=== PATIENT | female | born 1945 | race Caucasian/White ===

== ENCOUNTER → 2020-01-15 12:16 | Outpatient (BNVA) | payer MEDICARE, OTHER, SELFPAY | PROVIDERS: Family Provider Family Medicine; Visit Provider Dermatology | DX: D48.9 Neoplasm of uncertain behavior, unspecified (principal) | CPT/HCPCS: 88304 ==

== ENCOUNTER 2020-06-30 12:25 | Outpatient (CLI) | payer MEDICARE, OTHER, SELFPAY ==
--- NOTE | 2020-06-30 12:50 | MM_ITS ---
WS: [id number] BILATERAL SCREENING MAMMOGRAM WITH BELINDA DISPLACEMENT VIEWS. CAD PERFORMED. HISTORY: SCREENING COMPARISON: 03/01/2019, 12/05/2017 Bilateral craniocaudal and mediolateral like views are performed. Belinda displacement views in CC and MLO projection also performed. Breasts composition: There are scattered areas of fibroglandular density. Bilateral breast implants are contracted with calcifications. Extravasation from the RIGHT breast imp lant is stable. No suspicious masses or calcifications. MM/[place] [id number] IMPRESSION: BI-RADS: 2-Benign FOLLOW-UP: 1 Year Follow-up
== END 2020-06-30 12:26 | disposition home or self-care (01) ==
LOC: RADSHAW 12:27
PROVIDERS: PCP Family Medicine; Visit Provider Family Medicine
DX: Z12.31 Encounter for screening mammogram for malignant neoplasm of breast (principal)
CPT/HCPCS: 77067

== ENCOUNTER 2020-07-03 14:28 | Outpatient (CLI) | payer MEDICARE, OTHER, SELFPAY ==
--- NOTE | 2020-07-03 14:34 | XR_ITS ---
WS: [id number] SCREENING DEXA SCAN [employer] CLINICAL INFORMATION: OSTEOPOROSIS COMPARISON: 2018 FINDINGS: The L1-L4 bone mineral density measures 1.272 g/cm2. This corresponds to a T score score of 0.8 and Z score of 2.5. Left femoral neck bone mineral density measures 0.949 g/cm2. This corresponds to a T score of -0.5 an d Z score of 1.2. Right femoral neck bone mineral density measures 1.017 g/cm2. This corresponds to a T score 0.1of and Z score of 1.7. Mean femoral neck bone mineral density measures 0.983 g/cm2. This corresponds to a T score of -0.2 an d Z score of 1.4. XR/XR DEXA axial skeleton* [id number] IMPRESSION: Normal bone mineralization. Patient's FRAX calculated 10 year probability for major osteoporotic fracture i s 10.2 % and osteoporotic hip fracture is 1.8%.
== END 2020-07-03 14:29 | disposition home or self-care (01) ==
LOC: RADWPI 14:29
PROVIDERS: PCP Family Medicine; Visit Provider Family Medicine
DX: M81.0 Age-related osteoporosis without current pathological fracture (principal)
CPT/HCPCS: 77080

== ENCOUNTER 2021-07-20 12:41 | Outpatient (CLI) | payer MEDICARE, OTHER, SELFPAY ==
--- NOTE | 2021-07-20 13:00 | MM_ITS ---
WS: [id number] BILATERAL 3D TOMOSYNTHESIS DIGITAL SCREENING MAMMOGRAPHY WITH CAD CLINICAL INFORMATION: SCREENING HISTORY: Screening mammogram. No current complaints. COMPARISON: June 30, 2020 TECHNIQUE: Bilateral CC and MLO views. FINDINGS: Densely calcified lobulated subpectoral implants unchanged from previous. Extracapsular rup ture RIGHT breast implant is stable. Scattered fibroglandular densities bilaterally. A few incidental and punctate calcifications. Lucent centered calcifications. No suspicious focal mass, asymmetry, calcifications, or architectural distor tion. No evidence of malignancy. MM/[place] [id number] IMPRESSION: BI-RADS: 2-Benign FOLLOW UP: 1 Year Follow-up Recommend return to annual screening mammography.
== END 2021-07-20 12:42 | disposition home or self-care (01) ==
LOC: RAD 12:42
PROVIDERS: PCP Family Medicine; Visit Provider Family Medicine
DX: Z12.31 Encounter for screening mammogram for malignant neoplasm of breast (principal)
CPT/HCPCS: 77063; 77067

== ENCOUNTER 2022-07-22 09:43 | Outpatient (CLI) | payer MEDICARE, OTHER, SELFPAY ==
--- NOTE | 2022-07-22 09:54 | MM_ITS ---
WS: [id number] Bilateral screening 3D tomosynthesis digital mammogram, 07/22/2022 Clinical Data: SCREENING Comparison: 07/20/2021, 06/30/2020, 03/01/2019, 12/05/2017, 12/02/2016, 07/24/2015, 09/25/2012, 01/14/2011, , 09/11/2008, 08/09/2007. Findings: The breast parenchymal pattern shows fibroglandular tissue. Patient is had bilateral augmentation end oplastic implants. There is extracapsular rupture on the right unchanged. No spiculated masses or clu stered calcifications are seen. There are no secondary signs of carcinoma. MM/[place] [id number] Impression: 1. Negative bilateral mammograms with augmentation mammoplasty implants and ex tracapsular rupture of the right implant unchanged. 2. Recommend annual screening mammograms. BIRADS: 2-Benign FOLLOW UP: 1 Year Follow-up The CAD typing checker was used.
== END 2022-07-22 09:44 | disposition home or self-care (01) ==
LOC: RAD 09:48
PROVIDERS: PCP Family Medicine; Visit Provider Family Medicine
DX: Z12.31 Encounter for screening mammogram for malignant neoplasm of breast (principal)
CPT/HCPCS: 77063; 77067

== ENCOUNTER → 2022-08-27 10:24 | Outpatient (BNVA) | payer MEDICARE, OTHER, SELFPAY | PROVIDERS: PCP Family Medicine; Visit Provider Nurse Practitioner Family | DX: L57.0 Actinic keratosis (principal); L81.4 Other melanin hyperpigmentation; D22.5 Melanocytic nevi of trunk; Z71.89 Other specified counseling; L85.3 Xerosis cutis; L57.8 Other skin changes due to chronic exposure to nonionizing radiation; Z85.828 Personal history of other malignant neoplasm of skin | CPT/HCPCS: 17000; 17003; 99213 ==

== ENCOUNTER → 2023-03-01 09:20 | Outpatient (BNVA) | payer MEDICARE, OTHER, SELFPAY | PROVIDERS: PCP Family Medicine; Visit Provider Nurse Practitioner Family | DX: L57.0 Actinic keratosis (principal); L82.0 Inflamed seborrheic keratosis; Z85.828 Personal history of other malignant neoplasm of skin; D22.5 Melanocytic nevi of trunk; L81.4 Other melanin hyperpigmentation; L85.3 Xerosis cutis; L57.8 Other skin changes due to chronic exposure to nonionizing radiation | CPT/HCPCS: 17000; 17110; 99213 ==

== ENCOUNTER → 2023-05-17 11:11 | Outpatient (BNVA) | payer MEDICARE, OTHER, SELFPAY | PROVIDERS: PCP Family Medicine; Visit Provider Nurse Practitioner Family | DX: L82.1 Other seborrheic keratosis (principal); L82.0 Inflamed seborrheic keratosis; L57.0 Actinic keratosis; L57.8 Other skin changes due to chronic exposure to nonionizing radiation | CPT/HCPCS: 17000; 17110; 99213 ==

== ENCOUNTER 2023-07-27 10:14 | Outpatient (CLI) | payer MEDICARE, OTHER, SELFPAY ==
--- NOTE | 2023-07-27 10:56 | MM_ITS ---
WS: [id number] BILATERAL SCREENING DIGITAL BREAST MAMMOGRAPHY WITH BELINDA DISPLACEMENT VIEWS. CAD PERFORMED. HISTORY: SCREENING COMPARISON: 07/22/2022, 07/20/2021 Bilateral craniocaudal and mediolateral oblique views are performed with tomosynthesis and SM. Belinda displacement views in CC and MLO projection also performed. Breasts composition: There are scattered areas of fibroglandular density. Dense calcification surrounding the implants. Extracapsular rupture of the RIGHT implant is unchanged as seen on multiple prior studies. There are no masses. Benign calcifications LEFT breast. MM/[place] [id number] IMPRESSION: BI-RADS: 2-Benign FOLLOW-UP: 1 Year Follow-up
== END 2023-07-27 10:15 | disposition home or self-care (01) ==
LOC: RAD 10:14
PROVIDERS: PCP Family Medicine; Visit Provider Family Medicine
DX: Z12.31 Encounter for screening mammogram for malignant neoplasm of breast (principal)
CPT/HCPCS: 77063; 77067

== ENCOUNTER 2023-10-10 11:25 | Outpatient (CLI) | payer MEDICARE, OTHER, SELFPAY ==
--- NOTE | 2023-10-10 11:32 | MR_ITS ---
WS: [id number] MRI RIGHT SHOULDER NONCONTRAST TECHNIQUE: Sagittal T2, coronal T1, T2 and proton density imaging. Axial gradient PDE imaging. CLINICAL INFORMATION: IMPINGEMENT SYNDROME OF R SHOULDER COMPARISON: None. FINDINGS: Moderate degenerative arthritis AC joint with mild downsloping acromion. Subacromial spurring. Imping ement on the distal supraspinatus. Fluid in the AC joint. Small amount of subacromial subdeltoid flui d. Slight impingement on the distal supraspinatus. Mild chronic thinning of the supraspinatus. Chronic thinning of the infraspinatus which appears intact. Normal teres minor. Subscapularis tendon appears intact. Biceps tendon intact within the bicipital groove. Degenerative fraying of the glenoid labrum. Moderate degenerative arthritis glenohumeral articulation. Tendinopathy intra-articular bic eps tendon. MR/MR shoulder RT wo con* [id number] IMPRESSION: 1. Moderate degenerative arthritis AC joint with fluid and edema. 2. Slight impingement on the distal supraspinatus with slight subacromial spur ring. 3. Mild chronic thinning of the supraspinatus distally which appears intact. A ssociated tendinopathy. 4. Rotator cuff is otherwise intact. 5. Biceps tendon appears intact within the bicipital groove. 6. Tendinopathy intra-articular biceps tendon. 7. Moderate degenerative narrowing of the glenohumeral articulation.
== END 2023-10-10 11:26 | disposition home or self-care (01) ==
LOC: RAD 11:26
PROVIDERS: PCP Family Medicine; Visit Provider Orthopaedic Surgery
DX: M75.41 Impingement syndrome of right shoulder (principal); M13.811 Other specified arthritis, right shoulder; M62.89 Other specified disorders of muscle
CPT/HCPCS: 73221

== ENCOUNTER → 2023-11-09 14:02 | Outpatient (BNVA) | payer MEDICARE, OTHER, SELFPAY | PROVIDERS: PCP Family Medicine; Visit Provider Dermatology | DX: L72.0 Epidermal cyst (principal); L82.0 Inflamed seborrheic keratosis; S20.462A Insect bite (nonvenomous) of left back wall of thorax, initial encounter; X58.XXXA Exposure to other specified factors, initial encounter; D18.01 Hemangioma of skin and subcutaneous tissue; L81.4 Other melanin hyperpigmentation; Z85.828 Personal history of other malignant neoplasm of skin | CPT/HCPCS: 17110; 99213 ==

== ENCOUNTER → 2024-03-02 10:41 | Outpatient (BNVA) | payer MEDICARE, SELFPAY | PROVIDERS: Visit Provider Physician Assistant | DX: M25.551 Pain in right hip (principal); M16.11 Unilateral primary osteoarthritis, right hip | CPT/HCPCS: 73502; 99203 ==

== ENCOUNTER 2024-03-06 07:23 | Emergency (ER) | payer MEDICARE, OTHER, SELFPAY ==
[2024-03-06 07:34] VITALS: BP 170/63; PULSE 72; RESP 16; TEMP 37; O2SAT 98; BMI 23.9
[2024-03-06 07:38] VITALS: BP 170/63; PULSE 72; RESP 16; TEMP 37; O2SAT 98
--- NOTE | 2024-03-06 07:42 | ED_ITS ---
HPI - Extremity Problem General: Chief complaint: Extremity Problem,Nontraumatic Stated complaint: extreme pain in hip groin Time Seen by Provider: 03/06/24 07:35 History of Present Illness: 78-year-old female presents emergency ro om complaining of right groin pain and pain. She is seen orthopedics she has had steroid shot she has been given muscle relaxers and narcotic pain medications. Patient cannot recall any specific trauma she describes pain that radiates out of her buttock down the anterior thigh she states she has weakness in her leg feels like it is going to give way at times. No difficulty with bowel or bladder. Cortisone shot in the greater trochanter did not seem to help. Associated symptoms: Deny chest pain, fever(s) or rash Related Data Home Medications Medication Instructions Recorded Confirmed hydralazine 25 mg tablet 25 mg PO DAILY 01/15/20 03/06/24 hydrochlorothiazide 25 mg tablet 25 mg PO DAILY 01/15/20 03/06/24 lisinopril 40 mg tablet 40 mg PO DAILY 01/15/20 03/06/24 rosuvastatin 5 mg tablet (Crestor) 5 mg PO .Mon, Wed, Tue01/15/20 03/06/24 fluoxetine 10 mg capsule 10 mg PO DAILY 04/15/21 03/06/24 Previous Rx's Medication Instructions Recorded mupirocin 2 % topical ointment 1 applic topical DAILY #22 grams 05/28/21 meloxicam 15 mg tablet 15 mg PO DAILY #30 tabs 03/02/24 hydrocodone 5 mg-acetaminophen 325 1 tab PO Q6H PRN pain #15 tabs 03/06/24 mg tablet prednisone 20 mg tablet 20 mg PO TID #15 tabs 03/06/24 pregabalin 75 mg capsule (Lyrica) 75 mg PO BID #60 caps 03/06/24 tizanidine 4 mg tablet 4 mg PO Q6H PRN muscle spasticity 03/06/24 #20 tabs Allergies Allergy/AdvReac Type Severity Reaction Status Date / Time aspirin Allergy hives, Verified 03/02/24 10:42 can't breath, throat swells penicillin G Allergy a long Verified 03/02/24 10:42 time ago Review of Systems Const: Denies: fever(s) or chills Card: Denies: chest pain Resp: Denies: dyspnea GI: Denies: abdominal pain : Denies: dysuria, urinary frequency or urinary urgency Musc: Reports: extremity pain; Denies: neck pain or back pain Skin/Breast: Denies: rash PFSH ED PFSH: Medical History HTN (hypertension) Hyperlipemia History of nonmelanoma skin cancer Surgical History History of D&C History of repair of rotator cuff Family History Mother Cancer Other COPD (chronic obstructive pulmonary disease) Social History Smoking and tobacco/nicotine status: unknown if used tobacco/nicotine Alcohol intake: current Alcohol intake frequency: 0-2 Drinks per Day Alcohol type: wine Physical Exam Const: GENERAL APPEARANCE: cooperative ORIENTATION/CONSCIOUSNESS: Yes awake, Yes oriented to person, Yes oriented to place and Yes oriented to time HENMT: COMMON NORMALS: normocephalic, atraumatic and hearing grossly normal bilaterally HEAD & SCALP: normocephalic and atraumatic Resp: COMMON NORMALS: normal respiratory effort, No retractions, No use of accessory muscles and clear to auscultation bilaterally AUSCULTATION: clear to auscultation bilaterally Cardio: COMMON NORMALS: regular rate, regular rhythm and No murmurs present (Cardio) RATE: regular rate RHYTHM: regular rhythm GI: COMMON NORMALS: Soft to palpation and No hepatosplenomegaly present AUSCULTATION: Yes normoactive bowel sounds PALPATION: Yes Soft to palpation, No Tenderness to palpation present (GI), No Guarding due to palpation present (GI) and Yes No hepatosplenomegaly present Extremity: COMMON NORMALS: normal to inspection, capillary refill normal, no clubbing, cyanosis or edema, no calf tenderness and no pedal edema OTHER: Dorsalis pedis and posterior tibialis pulse normal capillary refill into the right foot is normal. Deep tendon reflexes difficult to elicit on the right patellar tendon +2/4 on the left. Dorsi and plantarflexion on the right is weak with dorsiflexion of the great toe on the right foot significantly weakened compared to the left. Sensation to the lower extremities bilaterally is normal. Straight leg raising equivocal. Neuro: SENSORIUM/ORIENTATION: Yes oriented to person, Yes oriented to place and Yes oriented to time Skin: COMMON NORMALS: no rashes or lesions noted GENERAL SKIN EXAM: no rashes or lesions noted Course Vital Signs: Vital signs: Vital Signs Temperature 98.6 F 03/06/24 07:38 Pulse Rate 72 03/06/24 07:38 Respiratory Rate 16 03/06/24 07:38 Blood Pressure 170/63 03/06/24 07:38 Pulse Oximetry 98 03/06/24 07:38 Oxygen Delivery Me thod Room Air 03/06/24 07:38 MDM - Extremity (Nontraumatic) Medical Decision Making CT of the lumbar spine shows lumbar disc with central canal stenosis at L4-5 5 S1. This is consistent with her exam. Suspect that her symptoms are more lumbar radiculopathy could move her hip through a fairly aggressive range of motion without causing significant amount of pain she has minimal discomfort with palpation over the greater trochanter. This could be because she previously had a steroid injection there however despite the steroid injection she still has considerable amount of symptoms. Reviewed findings with her and explained suspicions. Recommend that she follow-up with Dr. Sykes she would likely will benefit from further evaluation and possible advanced imaging of the lumbar spine Medical Records I reviewed the patient's medical records. Lab Data Radiology Impressions Lumbar Spine CT 03/06/24 07:53 Impression: 1. Moderate osteoarthritis at all lumbar levels. 2. Facet joint arthritis at all levels. 3. Degenerative disc narrowing at L3-L4. 4. Multilevel disc bulging with canal stenosis at L4-L5 and L5-S1. All radiology interpretation(s) finalized by discharge Discharge Plan Discharge Patient Disposition: Home Clinical Impression: Lumbar radiculopathy, right Condition: Stable Prescriptions: New tizanidine 4 mg tablet 4 mg PO Q6H PRN (Reason: muscle spasticity) Qty: 20 0RF Rx Instructions: do not exceed 3 doses per 24 hrs hydrocodone-acetaminophen 5-325 mg tablet 1 tab PO Q6H PRN (Reason: pain) Qty: 15 0RF prednisone 20 mg tablet 20 mg PO TID Qty: 15 0RF Rx Instructions: 1 p.o. 3 times daily x3 days, 1 p.o. twice daily x2 days, 1 p.o. daily x2 days pregabalin [Lyrica] 75 mg capsule 75 mg PO BID Qty: 60 0RF No Action fluoxetine 10 mg capsule 10 mg PO DAILY mupirocin 2 % ointment 1 applic topical DAILY Qty: 22 1RF Rx Instructions: Apply to affected area until healed lisinopril 40 mg tablet 40 mg PO DAILY rosuvastatin [Crestor] 5 mg tablet 5 mg PO .Mon, Wed, Fri hydralazine 25 mg tablet 25 mg PO DAILY hydrochlorothiazide 25 mg tablet 25 mg PO DAILY meloxicam 15 mg tablet 15 mg PO DAILY Qty: 30 1RF Discharge Orders: Discharge ED (Routine); Ordered 03/06/24 Ordered By: Bertin Monge Discharge Diet: Usual diet Discharge Activity: Increase activity as tolerated Patient Instructions: Opioid Safety, Pain Management Activity Restrictions/Additional Instructions: Thank you for choosing [facility] for your healthcare needs today. It is very important that you follow up as instructed or that you return to the Emergency Department should you have concerns or if your condition changes or worsens in any way. You were seen in the emergency room with complaint of right hip and leg pain. Based on your exam and your reported history suspect that this is due to a nerve root compression or irritation where it leaves the spinal cord column. CT does show this however you likely will need more detailed imaging from an MRI. Will set you up to see Dr. Sykes as an outpatient. You can use the pain medications prescribed today to control your symptoms in the interim. Coding Level of Care Code ED Home [facility] [employer] for Leticia Mehta
--- NOTE | 2024-03-06 07:53 | CT_ITS ---
WS: [id number] CT of the lumbar spine, additional two-dimensional coronal and sagittal imaging was obtained. 024 Clinical Data: R leg radiculopathy Comparison: None. DLP: 506.[address] scans at [facility] use at least one of these dose optimization techniques: automated e xposure control; mA and/or kV adjustment per patient size (includes targeted exams where dose is matc hed to clinical indication); or iterative reconstruction. Findings: There is anterior osteoarthritic spurring of all the lumbar vertebral bodies. There is dege nerative disc narrowing at L3-L4. No compression fractures or subluxation is seen. There is facet lambert nt arthritis at all levels. T12-L1: No canal stenosis, disc bulge or foraminal narrowing is seen. L1-L2: No canal stenosis, disc bulge or foraminal narrowing is seen. L2-L3: There is minimal disc bulging but no canal stenosis. L3-L4: There is minimal disc bulging but no significant canal stenosis. L4-L5: There is moderate disc bulging with canal stenosis. L5-S1: There is moderate disc bulging with canal stenosis. CT/CT lumbar spine wo con* [id number] Impression: 1. Moderate osteoarthritis at all lumbar levels. 2. Facet joint arthritis at all levels. 3. Degenerative disc narrowing at L3-L4. 4. Multilevel disc bulging with canal stenosis at L4-L5 and L5-S1.
[2024-03-06] MEDS: ketorolac 30 mg/mL INJ IVP (08:29)
[2024-03-06] MEDS: orphenadrine 30 mg/mL Inj 2 mL 60 MG IM (08:29)
[2024-03-06] MEDS: morphine 4 mg/mL SDV 1 mL IVP (08:33)
--- NOTE | 2024-03-06 09:41 | DCPLANNER ---
Message sent to Ortho/ for follow up-
[2024-03-06 10:23] VITALS: BP 141/90; PULSE 68; O2SAT 99
== END 2024-03-06 10:28 | disposition home or self-care (01) ==
PROVIDERS: Emergency Provider Family Medicine
DX: M54.16 Radiculopathy, lumbar region (principal); I10 Essential (primary) hypertension; E78.5 Hyperlipidemia, unspecified
CPT/HCPCS: 72131; 96372; 96374; 96375; 99285; J1885; J2270; J2360

== ENCOUNTER 2024-03-19 08:29 | Outpatient (CLI) | payer MEDICARE, OTHER, SELFPAY ==
--- NOTE | 2024-03-19 08:32 | MR_ITS ---
WS: [id number] MRI LUMBAR SPINE NONCONTRAST HISTORY: STENOISIS OF SPINAL CANAL DUE TO intervertebral disc disease. COMPARISON: CT lumbar spine 03/06/2024 TECHNIQUE: Sagittal and axial multisequence imaging is submitted. Mild LEFT curvature lumbar spine. Disc spaces are mildly narrowed and desiccated. L4 anterolisthesis by 2 mm. No fractures. No significant marrow edema. Conus terminates normally at L1. L1-L2: Normal. L2-L3: Moderate annular disc bulging with ligamentum flavum and facet arthritis. Disc encroachment up on the subarticular recesses. Additional bilateral foraminal disc protrusions, LEFT greater than RIGH T. Mild central with moderate bilateral subarticular recess encroachment. There is disc encroachment upon the traversing L3 nerve roots. Mild bilateral foraminal stenosis. L3-L4: Diffuse annular disc bulging encroaching upon the ventral thecal sac. Moderate ligamentum flav um and facet arthritis. Disc narrowing the subarticular recesses, RIGHT greater then LEFT. Disc encro achment upon the traversing L4 nerve roots. Osteophytic ridging. Disc osteophyte complexes in the for gold. Mild to moderate central, bilateral subarticular recess and foraminal stenosis. L4-L5: Diffuse annular disc bulging with ligamentum flavum and facet arthritis. Disc encroachment upo n the subarticular recesses and traversing L5 nerve roots. Mild central, bilateral subarticular reces s and foraminal stenosis. L5-S1: LEFT foraminal shallow disc protrusion with annular fissure. Very minimal contact on the trave rsing S1 nerve roots, LEFT greater than RIGHT. RIGHT renal cysts, largest 2.2 cm. MR/MR lumbar spine wo con* [id number] IMPRESSION: 1. Multilevel degenerative disc disease with disc and osteophyte and facet art hritis resulting in stenoses. 2. L2-3: Mild central with moderate bilateral subarticular recess encroachment . Encroachment upon the L3 traversing nerve roots. Mild foraminal stenosis. 3. L3-4: Mild to moderate central, bilateral subarticular recess and foraminal stenosis. Disc encroachment upon the traversing L4 nerve roots, RIGHT greater than LEFT. 4. L4-5: Mild central, bilateral subarticular recess and foraminal stenosis. 5. Minimal disc contacting the traversing S1 nerve roots. Shallow LEFT foramin al disc protrusion at L5-S1.
== END 2024-03-19 08:30 | disposition home or self-care (01) ==
LOC: RAD 08:30
PROVIDERS: Absent Provider Orthopaedic Surgery; PCP Family Medicine; Visit Provider Family Medicine
DX: M99.59 Intervertebral disc stenosis of neural canal of abdomen and other regions (principal); M48.061 Spinal stenosis, lumbar region without neurogenic claudication; M51.369 Other intervertebral disc degeneration, lumbar region without mention of lumbar back pain or lower extremity pain; R93.89 Abnormal findings on diagnostic imaging of other specified body structures; M51.27 Other intervertebral disc displacement, lumbosacral region; M47.816 Spondylosis without myelopathy or radiculopathy, lumbar region; M25.78 Osteophyte, vertebrae; N28.1 Cyst of kidney, acquired; M43.8X6 Other specified deforming dorsopathies, lumbar region
CPT/HCPCS: 72148

== ENCOUNTER → 2024-03-29 13:43 | Outpatient (BNVA) | payer MEDICARE, OTHER, SELFPAY | PROVIDERS: PCP Family Medicine; Visit Provider Orthopaedic Surgery | DX: M54.9 Dorsalgia, unspecified (principal) | CPT/HCPCS: 72110; 99204 ==

== ENCOUNTER → 2024-04-05 10:35 | Outpatient (BNVA) | payer MEDICARE, OTHER, SELFPAY | PROVIDERS: PCP Family Medicine; Visit Provider Nurse Practitioner Family | DX: L72.0 Epidermal cyst (principal); D18.01 Hemangioma of skin and subcutaneous tissue; L81.4 Other melanin hyperpigmentation; Z08 Encounter for follow-up examination after completed treatment for malignant neoplasm; Z85.828 Personal history of other malignant neoplasm of skin; D48.5 Neoplasm of uncertain behavior of skin | CPT/HCPCS: 11102; 99213 ==

== ENCOUNTER → 2024-04-20 08:27 | Outpatient (BNVA) | payer MEDICARE, OTHER, SELFPAY | PROVIDERS: PCP Family Medicine; Visit Provider Student in an Organized Health Care Education/Training Program | DX: M16.11 Unilateral primary osteoarthritis, right hip (principal) | CPT/HCPCS: 20610; 77002; J3301 ==

== ENCOUNTER → 2024-05-03 12:52 | Outpatient (BNVA) | payer MEDICARE, OTHER, SELFPAY | PROVIDERS: PCP Family Medicine; Visit Provider Dermatology | DX: D04.9 Carcinoma in situ of skin, unspecified (principal); L82.1 Other seborrheic keratosis; L72.0 Epidermal cyst; Z08 Encounter for follow-up examination after completed treatment for malignant neoplasm; Z85.828 Personal history of other malignant neoplasm of skin; L57.0 Actinic keratosis | CPT/HCPCS: 17000; 99213 ==

== ENCOUNTER → 2024-05-17 15:09 | Outpatient (BNVA) | payer MEDICARE, OTHER, SELFPAY | PROVIDERS: PCP Family Medicine; Visit Provider Orthopaedic Surgery | DX: M54.50 Low back pain, unspecified (principal) | CPT/HCPCS: 72110; 99214 ==

== ENCOUNTER 2024-07-27 10:21 | Outpatient (CLI) | payer MEDICARE, OTHER, SELFPAY ==
--- NOTE | 2024-07-27 10:25 | MM_ITS ---
WS: [id number] BILATERAL 3D TOMOSYNTHESIS DIGITAL SCREENING MAMMOGRAPHY WITH CAD CLINICAL INFORMATION: SCREENING HISTORY: Screening mammogram. No current complaints. COMPARISON: 2022 TECHNIQUE: Bilateral CC and MLO views. FINDINGS: Stable extracapsular rupture RIGHT implant is unchanged over multiple prior studies. Scattered fibroglandular densities bilaterally. No suspicious focal mass, asymmetry, calcifications, or architectural distortion. No evidence of malignancy. Incidental punctate and lucent centered calcifications. Vascular calcifications. Capsular calcifications. MM/MM [facility] tomosynthesis [id number] IMPRESSION: DENSITY: There are scattered areas of fibroglandular density. BI-RADS: 2 - Benign. FOLLOW UP: 1 Year Follow-up Recommend return to annual screening mammography.
== END 2024-07-27 10:22 | disposition home or self-care (01) ==
PROVIDERS: PCP Family Medicine; Visit Provider Family Medicine
DX: Z12.31 Encounter for screening mammogram for malignant neoplasm of breast (principal); R92.323 Mammographic fibroglandular density, bilateral breasts; R92.1 Mammographic calcification found on diagnostic imaging of breast
CPT/HCPCS: 77063; 77067

== ENCOUNTER → 2024-08-07 13:50 | Outpatient (BNVA) | payer MEDICARE, OTHER, SELFPAY | PROVIDERS: PCP Family Medicine; Visit Provider Dermatology | DX: D04.9 Carcinoma in situ of skin, unspecified (principal); L82.1 Other seborrheic keratosis; L72.0 Epidermal cyst; L73.8 Other specified follicular disorders; Z08 Encounter for follow-up examination after completed treatment for malignant neoplasm; Z85.828 Personal history of other malignant neoplasm of skin; L82.0 Inflamed seborrheic keratosis; L29.89 Other pruritus; L53.8 Other specified erythematous conditions; L57.0 Actinic keratosis | CPT/HCPCS: 17000; 17110; 99213 ==

== ENCOUNTER 2024-10-22 14:35 | Outpatient (CLI) | payer MEDICARE, OTHER, SELFPAY | END 2024-10-22 14:36 | disposition home or self-care (01) | LOC: LAB 14:38 | PROVIDERS: PCP Family Medicine; Visit Provider Nurse Practitioner Family | DX: R21 Rash and other nonspecific skin eruption (principal) | CPT/HCPCS: 36415; 86003; 86008 ==

== ENCOUNTER 2024-10-22 22:48 | Inpatient (IN) | payer MEDICARE, OTHER, SELFPAY ==
[2024-10-22 22:49] VITALS: BP 106/59; PULSE 79; RESP 15; TEMP 36.4; O2SAT 96; BMI 23.5
--- OUTSIDE RECORDS SUMMARY | 2024-10-22 22:56 | XMS_ITS | Patient Health Record ---
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 Name Role Phone Nancy Serrano Primary Care Provider Darvin Whitley Allergies Allergen (clinical drug ingredient) Drug/Non Drug Allergy documented on EMR Reaction Allergy Type Onset Date Status aspirin Aspirin , Drug Allergy Active Reason For Referral No Information Medications Medication SIG (Take, Route, Frequency, Duration) Notes Start Date End Date Status Lisinopril 40 MG Oral Tablet Lisinopril 40 MG Oral Tablet 6 03/21/18 Active Simvastatin 40 MG Oral Tablet Simvastatin 40 MG Oral Tablet 6 03/21/18 Active Hydrochlorothiazide 25 MG Oral Tablet Hydrochlorothiazide 25 MG Oral Tablet 6 03/21/18 Active Hydralazine Hydrochloride 25 MG Oral Tablet Hydralazine Hydrochloride 25 MG Oral Tablet 6 03/21/18 Active Social History Social History Additional Details Category Social Info Options Details zzMigrated Social History Migrated Social History Smoking Status:Never smoked tobacco (finding) Plan Of Treatment No Information
--- NOTE | 2024-10-22 23:02 | W.ED.ALLEREA ---
HPI - Allergic Reaction General: Chief complaint: Allergic Reaction Stated complaint: allergic rxn Time Seen by Provider: 10/22/24 22:53 History of Present Illness: HPI narrative: Patient comes in with chest pain and an allergic reaction. States for the past few days she has had hives on her arms and legs. States that today they got a little worse after being started on 20 mg of prednisone a day and famotidine daily as well as Benadryl. States that she called the ambulance tonight because she developed chest pain which she describes as sharp midsternal, off-and-on. And route she was given 0.5 mg of IM epinephrine. After the epinephrine her symptoms completely resolved. She is asymptomatic here. Her hives are gone. Will increase her dose of prednisone, check labs, EKG, and reassess. Related Data Home Medications ?Medication ?Instructions ?Recorded ?Confirmed hydralazine 25 mg tablet 25 mg PO DAILY 01/15/20 10/21/24 hydrochlorothiazide 25 mg tablet 25 mg PO DAILY 01/15/20 10/21/24 lisinopril 40 mg tablet 40 mg PO DAILY 01/15/20 10/21/24 fluoxetine 10 mg capsule 10 mg PO DAILY 04/15/21 10/21/24 cholecalciferol (vitamin D3) 1,250 PO 10/21/24 10/21/24 mcg (50,000 unit) capsule rimantadine 100 mg tablet 100 mg PO DAILY 10/21/24 10/21/24 (Flumadine) Previous Rx's ?Medication ?Instructions ?Recorded famotidine 40 mg tablet (Pepcid) 40 mg PO BID #10 tabs 10/21/24 prednisone 20 mg tablet 20 mg PO DAILY 5 days #15 tabs 10/21/24 Allergies Allergy/AdvReac Type Severity Reaction Status Date / Time aspirin Allergy hives, Verified 04/20/24 07:15 can't breath, throat swells penicillin G Allergy a long Verified 04/20/24 07:15 time ago Review of Systems Card: Reports: chest pain Skin/Breast: Reports: other (Hives) [facility] PFS: Medical History (Updated 10/23/24 @ 00:08 by Camilo Khalil MD) HTN (hypertension) Hyperlipemia History of nonmelanoma skin cancer Surgical History History of D&C History of repair of rotator cuff Family History Mother Cancer Other COPD (chronic obstructive pulmonary disease) Social History Smoking and tobacco/nicotine status: never used tobacco/nicotine Alcohol intake: current Alcohol intake frequency: 0-2 Drinks per Day Alcohol type: wine Marital status: Physical Exam Const: COMMON NORMALS: no acute distress, patient oriented x3, healthy appearing and alert HENMT: COMMON NORMALS: normocephalic and atraumatic HEAD & SCALP: normocephalic and atraumatic Eye: COMMON NORMALS: EOMs intact bilaterally Chest: OTHER: Regular rate and rhythm Resp: COMMON NORMALS: normal respiratory effort, No retractions and No use of accessory muscles GI: COMMON NORMALS: Normal to inspection, nondistended, normoactive bowel sounds present, Soft to palpation and non-tender PALPATION: Yes Soft to palpation Extremity: COMMON NORMALS: normal to inspection and full ROM Neuro: COMMON NORMALS: patient oriented x3 SENSORIUM/ORIENTATION: Yes alert Psych: COMMON NORMALS: mental status grossly normal and cooperative Skin: COMMON NORMALS: no rashes or lesions noted and no wounds GENERAL SKIN EXAM: no rashes or lesions noted Course Vital Signs: Vital signs: Vital Signs Temperature 97.6 F 10/22/24 22:49 Pulse Rate 79 10/22/24 22:49 Respiratory Rate 15 10/22/24 22:49 Blood Pressure 106/59 10/22/24 22:49 Pulse Oximetry 96 10/22/24 22:49 Oxygen Delivery Me thod Room Air 10/22/24 22:49 MDM - Allergic Reaction Medical Decision Making On reassessment I talked to the patient about her test results. Her troponin came back initially at 51. Her potassium is low as well at 2.6. Will begin replenishment of potassium both p.o. and IV. I discussed the case with the hospitalist and we will admit for observation/cardiac rule out as well as to make sure her allergic reaction does not recur after the epinephrine wears off. Lab Data 10/22/24 23:15 10/22/24 23:15 Laboratory Results WBC 15.29 10^3/uL (3.29-11.43) H 10/22/24 23:15 RBC 4.27 10^6/uL (3.85-5.65) 10/22/24 23:15 Hgb 13.10 g/dL (11.27-16.99) 10/22/24 23:15 Hct 39.2 % (36-47) 10/22/24 23:15 MCV 91.8 fl (85-98) 10/22/24 23:15 MCH 30.7 pg (27-33) 10/22/24 23:15 MCHC 33.4 g/dL (30-55) 10/22/24 23:15 RDW 11.9 % (12.1-15.1) L 10/22/24 23:15 Plt Count 287 10^3/cmm (157-399) 10/22/24 23:15 MPV 10.6 fL (7.4-10.4) H 10/22/24 23:15 Neut % (Auto) 68.9 % 10/22/24 23:15 Lymph % (Auto) 25.4 % 10/22/24 23:15 [place] % (Auto) 5.2 % 10/22/24 23:15 Eos % (Auto) 0.1 % 10/22/24 23:15 Baso % (Auto) 0.1 % 10/22/24 23:15 Neut # (Auto) 10.53 10^3/uL (1.8-7.7) H 10/22/24 23:15 Lymph # (Auto) 3.9 10^3/uL (0.8-4.8) 10/22/24 23:15 [place] # (Auto) 0.8 10^3/uL (0.2-0.9) 10/22/24 23:15 Eos # (Auto) 0.0 10^3/uL (0.0-0.8) 10/22/24 23:15 Baso # (Auto) 0.0 10^3/uL (0.0-0.1) 10/22/24 23:15 Nucleated RBC % (auto) 0 % 10/22/24 23:15 Nucleated RBCs # 0.0 /100WBC 10/22/24 23:15 Sodium 133 mmol/L (136-145) L 10/22/24 23:15 Potassium 2.6 mmol/L (3.5-5.1) L* 10/22/24 23:15 Chloride 98 mmol/L (98-107) 10/22/24 23:15 Carbon Dioxide 21 mmol/L (22-29) L 10/22/24 23:15 Anion Gap 16.6 (5-19) 10/22/24 23:15 BUN 11 mg/dL (8-23) 10/22/24 23:15 Creatinine 0.5 mg/dL (0.5-0.9) 10/22/24 23:15 GFR Calculation Not Reportable 10/22/24 23:15 Glucose 159 mg/dL (65-115) H 10/22/24 23:15 Calculated Osmolality 279 mOsm/kg (285-295) L 10/22/24 23:15 Calcium 7.7 mg/dL (8.5-10.5) L 10/22/24 23:15 Troponin T Baseline 51 ng/L (0-10) H 10/22/24 23:15 No radiology studies performed this visit Discharge Plan Discharge Patient Disposition: Placed in Observation Clinical Impression: Elevated troponin, Acute hypokalemia, Allergic reaction Coding Level of Care Code ED Supervisor Special Services for Leticia Mehta
--- NOTE | 2024-10-22 23:08 | ECG_ITS ---
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 Measurements Intervals [place] Rate: 69 P: 89 NV: 181 QRS: 73 QRSD: 90 T: 76 QT: 429 QTc: 463 Interpretive Statements SINUS RHYTHM WITH OCCASIONAL VENTRICULAR PREMATURE COMPLEXES SEPTAL MYOCARDIAL INFARCTION , OF INDETERMINATE AGE [40+ ms Q WAVE IN V1/V2] Compared to ECG 10/23/2018 12:05:04 Ventricular premature complex(es) now present Myocardial infarct finding now present Electronically Signed On 10-23-2024 23:03:18 CDT by Wendy Fernandez M.D. [id number]
[2024-10-22 23:28] VITALS: BP 117/71; PULSE 65; RESP 16; O2SAT 97
[2024-10-22 23:34] LABS: Hematocrit 39.2 % (36-47); Hemoglobin 13.10 g/dL (11.27-16.99); Mean Corpuscular HGB Conc 33.4 g/dL (30-55); Mean Corpuscular Hemoglobin 30.7 pg (27-33); Mean Corpuscular Volume 91.8 fl (85-98); Nucleated Red Blood Cells % 0 %; Platelet Count 287 10^3/cmm (157-399); Red Blood Count 4.27 10^6/uL (3.85-5.65); White Blood Count 15.29 10^3/uL (3.29-11.43)
[2024-10-22 23:49] LABS: Troponin(5th) Baseline 51 ng/L (0-10)
[2024-10-22 23:50] LABS: Blood Urea Nitrogen 11 mg/dL (8-23); Calcium 7.7 mg/dL (8.5-10.5); Carbon Dioxide 21 mmol/L (22-29); Chloride 98 mmol/L (98-107); Creatinine Clr Calc Pharmacy 59.6633; Glucose 159 mg/dL (65-115); Osmolality Calculated 279 mOsm/kg (285-295); Sodium 133 mmol/L (136-145)
[2024-10-22 23:52] LABS: Anion Gap 16.6 (5-19)
[2024-10-22 23:53] LABS: Potassium 2.6 mmol/L (3.5-5.1)
[2024-10-23] VITALS (210 sets, daily range): BP systolic 75–141; BP diastolic 44–92; PULSE 55–93; RESP 4–34; TEMP 36.6–37.1; O2SAT 59–100; BMI 23.6
[2024-10-23] MEDS: potassium chloride premix 100 ML 50 MEQ IV (00:32)
[2024-10-23] MEDS: potassium chloride oral liq 20 mEq/15 mL UDC 40 MEQ PO (00:32)
--- NOTE | 2024-10-23 00:46 | USCV_ITS ---
Darlin Riley Age: 79 Gender: F : 1945 Exam Date: 10/23/2024 01:10 Ordering Phys: Melo Vieyra MD Technologist: NAYAN Exam Location: [facility] [place] Indication: sob, chest pain, hives BP: 129 / 71 HR: 67 Rhythm: Sinus Technical Quality: Technically difficult study c/o breast implants MEASUREMENTS (Male / Female) Normal Values 2D ECHO LV Diastolic Diameter PLAX 4.2 cm 4.2 - 5.9 / 3.9 - 5.3 cm IVS Diastolic Thickness 1.2 cm 0.6 - 1.0 / 0.6 - 0.9 cm IVS Systolic Thickness 1.7 cm LVPW Diastolic Thickness 1.1 cm 0.6 - 1.0 / 0.6 - 0.9 cm LVPW Systolic Thickness 1.4 cm LVOT Diameter 1.7 cm LV Ejection Fraction 2D Teich 69.0 % LV Ejection Fraction MOD 4C 46.3 % LV Ejection Fraction MOD 2C 61.9 % LV Ejection Fraction 2C AL 62.2 % LA Diameter 2.8 cm Aorta at Sinotubular Diameter 2.5 cm IVC Diameter 1.6 cm M-MODE LA Ao Ratio MM 1.6 AV Cusp Separation MM 1.6 cm DOPPLER AV Peak Velocity 95.0 cm/s LVOT Peak Velocity 62.0 cm/s AV Area Cont Eq vti 1.6 cm squared AV Area Cont Eq pk 1.5 cm squared MV Peak Velocity 114.0 cm/s MV Area PHT 3.3 cm squared Mitral E to A Ratio 1.5 TV Peak Velocity 214.7 cm/s TR Peak Velocity 230.0 cm/s TR Peak Gradient 21.2 mmHg TV Peak E Velocity 56.0 cm/s PV Peak Velocity 76.0 cm/s FINDINGS Left Ventricle Mild to moderate hypokinesia of the mid and apical septum, anteroseptum, inferolateral and inferior wall segments. LV ejection fraction around 46%. Features of grade 3 left- ventricular diastolic dysfunction Right Ventricle The right ventricle is normal in size and function. Right Atrium The right atrium is normal in size. Left Atrium Mildly increased left atrial size. Mitral Valve Slightly thickened mitral valve.trace mitral valve regurgitation. Aortic Valve No gross abnormalities noted Tricuspid Valve No gross abnormalities noted Pulmonic Valve Trace pulmonary valve regurgitation. Pericardium Normal pericardium without effusion. Aorta Normal ascending aorta dimension. IVC The inferior vena cava appears normal. CONCLUSIONS Mild to moderate hypokinesia of the mid and apical septum, anteroseptum, inferolateral and inferior wall segments. LV ejection fraction around 46%. Features of grade 3 left- ventricular diastolic dysfunction. Mildly increased left atrial size. Trace pulmonary valve regurgitation. There is no pericardial effusion. There are no intracardiac masses. No similar previous studies are available for comparison Dr Wendy Fernandez MD [facility] (Electronically Signed) Final Date: 23 October 2024 13:59 S
--- NOTE | 2024-10-23 00:48 | PM.HP ---
Providers/Chief Complaint Primary Care Provider: Shad Allen MD Chief Complaint: allergic rxn History of Present Illness Darlin Riley is a 79 year old female with a past medical history of hypertension, who presents to [facility] due to chest pain. Patient tells me that on Tuesday, she was working out in her yard, she was moving dirt with her tractor, when she started developing hives on her arms, on her chest, on her abdomen, she does tell me that she got into poison frida but she does not think it was poison frida she shows me pictures on her phone of multiple welts along her waistline, on her arms, they were pruritic, erythematous, no facial swelling, no tongue swelling, no shortness of breath, she went to urgent care was given prednisone, she tells me that since taking the prednisone the welts/erythema/pruritus has significantly proved some areas persist on her arms, on her back, on her chest, her abdomen, does report 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 Tonight she experienced substernal chest pain radiating to her back, substernal, no associated shortness of breath, no lightheadedness, dizziness, when EMS arrived to her home, given her rash and her chest pain complaints they thought she was having allergic reaction and she was given 0.5 mg of IM epinephrine, she was found to have tachycardic on the ambulance ride over which has subsequently resolved, she denies any active chest pain, troponins 51 Review of Systems Const: Denies: fever(s) Card: Reports: chest pain Resp: Denies: dyspnea GI: Denies: abdominal pain Medications/Allergies Home Medications ?Medication ?Instructions ?Recorded ?Confirmed ?Last Taken ?Type hydralazine 25 mg tablet 25 mg PO DAILY 01/15/20 10/21/24 Unknown History hydrochlorothiazide 25 mg tablet 25 mg PO DAILY 01/15/20 10/21/24 Unknown History lisinopril 40 mg tablet 40 mg PO DAILY 01/15/20 10/21/24 Unknown History fluoxetine 10 mg capsule 10 mg PO DAILY 04/15/21 10/21/24 Unknown History cholecalciferol (vitamin D3) 1,250 PO 10/21/24 10/21/24 Unknown History mcg (50,000 unit) capsule famotidine 40 mg tablet (Pepcid) 40 mg PO BID #10 tabs 10/21/24 10/21/24 Unknown Rx prednisone 20 mg tablet 20 mg PO DAILY 5 days #15 tabs 10/21/24 10/21/24 Unknown Rx rimantadine 100 mg tablet 100 mg PO DAILY 10/21/24 10/21/24 Unknown History (Flumadine) Allergies Allergy/AdvReac Type Severity Reaction Status Date / Time aspirin Allergy hives, Verified 04/20/24 07:15 can't breath, throat swells penicillin G Allergy a long Verified 04/20/24 07:15 time ago PFSH Acute PFSH: Medical History HTN (hypertension) Hyperlipemia History of nonmelanoma skin cancer Surgical History History of D&C History of repair of rotator cuff Family History Mother Cancer Other COPD (chronic obstructive pulmonary disease) Social History Smoking and tobacco/nicotine status: never used tobacco/nicotine Alcohol intake: current Alcohol intake frequency: 0-2 Drinks per Day Alcohol type: wine Marital status: Vitals/I&O/Wt Last Vital Signs Temp 97.6 F 10/22/24 22:49 Pulse 74 10/23/24 00:40 Resp 18 10/23/24 00:40 BP 129/71 10/23/24 00:40 Pulse Ox 96 10/23/24 00:40 O2 Del Method Room Air 10/23/24 00:40 Weight last 48 hrs Weight 68.039 kg Physical Exam Const: COMMON NORMALS: no acute distress and patient oriented x3 Eye: COMMON NORMALS: Equal, round and reactive pupils present and EOMs intact bilaterally Resp: COMMON NORMALS: normal respiratory effort, No retractions, No use of accessory muscles and clear to auscultation bilaterally AUSCULTATION: clear to auscultation bilaterally Cardio: COMMON NORMALS: no JVD, regular rate, regular rhythm, S1 normal heart sound present and S2 normal heart sound present RATE: regular rate RHYTHM: regular rhythm HEART SOUNDS: S1 normal heart sound present and S2 normal heart sound present GI: COMMON NORMALS: Normal to inspection, nondistended, normoactive bowel sounds present, Soft to palpation and non-tender PALPATION: Yes No hepatosplenomegaly present Extremity: COMMON NORMALS: no calf tenderness and no pedal edema Neuro: COMMON NORMALS: patient oriented x3, CN's II-XII intact bilaterally and moves all extremities Psych: COMMON NORMALS: mental status grossly normal Skin: NARRATIVE SKIN EXAM: Superficial, erythematous, maculopapular rash, irregular borders, appears as wheals and hives, along the abdomen, back, chest, bilateral arms Data 10/22/24 23:15 10/22/24 23:15 A&P Assessment and plan 1. Allergic reaction: 2. Elevated troponin: 3. Hypokalemia: 4. Chest pain: Plan: - Hypokalemia - Receiving IV and p.o. replacement emergency room Allergic reaction versus poison frida exposure - Epinephrine as needed - Solu-Medrol 40 mg IV every 12 hours - Zyrtec - Pepcid - Monitor closely Chest pain - With elevated troponins - Serial EKGs, serial troponins, telemetry monitoring - Cardiac echo - N.p.o., cardiac stress test - Has aspirin allergy - Statin Full code Lovenox for DVT prophylaxis PDMP PDMP Reviewed: Not Reviewed Attestations Medical Necessity Statement*: Patient requires hospitalization, outpatient with observation for chest pain, NSTEMI, allergic reaction, hypokalemia Diagnoses Allergic reaction T78.40XA Elevated troponin R79.89 Hypokalemia E87.6 Chest pain R07.9
--- NOTE | 2024-10-23 01:01 | ECG_ITS ---
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 Measurements Intervals [place] Rate: 63 P: 80 AR: 172 QRS: 84 QRSD: 97 T: 83 QT: 427 QTc: 439 Interpretive Statements SINUS RHYTHM SEPTAL MYOCARDIAL INFARCTION , OF INDETERMINATE AGE [40+ ms Q WAVE IN V1/V2] Compared to ECG 10/22/2024 23:08:32 Ventricular premature complex(es) no longer present Myocardial infarct finding still present Electronically Signed On 10-24-2024 09:28:20 CDT by Wendy Fernandez M.D. [email or web address]
[2024-10-23 01:21] LABS: NT Pro B Type Natriuretic Pept 151 pg/mL (0-450)
[2024-10-23 01:29] LABS: Troponin 5 2HR 375.1 ng/L (0-10)
[2024-10-23 01:30] LABS: Troponin 5 2HR Delta 324.1 ABS# (0-10)
[2024-10-23] MEDS: heparin drip 25,000 UNIT/500 ML PREMIX 16.33 UNIT IV (03:14)
[2024-10-23] MEDS: heparin 5,000 unit/mL INJ 1 mL 4000 UNIT IVP (03:15)
--- NOTE | 2024-10-23 04:15 | PC.NURSE ---
Patient arrived to ICU 4 at 0335. Alert and oriented. Standby assist. No pain. Patient settled in bed and oriented to room, call light, and bed. No needs at this time.
--- NOTE | 2024-10-23 04:47 | PC.NURSE ---
Order placed for PTT q6h per protocol. Drip started in ED at 0315.
--- NOTE | 2024-10-23 05:01 | ECG_ITS ---
[employer] Test Date: 2024-10-23 Pat Name: Darlin Riley Department: Room: [facility] Gender: Female Brand Specialist: : 1945 Requested By: Camilo Khalil Order Number: [id number] Esther MD: Wendy Fernandez M.D. Measurements Intervals [place] Rate: 64 P: 62 [place]: 177 QRS: 57 QRSD: 105 T: 89 QT: 429 QTc: 445 Interpretive Statements SINUS RHYTHM NONSPECIFIC T-WAVE ABNORMALITY Compared to ECG 10/23/2024 00:58:45 T-wave abnormality now present Myocardial infarct finding no longer present Electronically Signed On 10-24-2024 09:27:51 CDT by Wendy Fernandez M.D. [email or web address]
[2024-10-23 05:34] LABS: Hematocrit 40.2 % (36-47); Hemoglobin 13.50 g/dL (11.27-16.99); Mean Corpuscular HGB Conc 33.6 g/dL (30-55); Mean Corpuscular Hemoglobin 31.3 pg (27-33); Mean Corpuscular Volume 93.1 fl (85-98); Nucleated Red Blood Cells % 0 %; Platelet Count 262 10^3/cmm (157-399); Red Blood Count 4.32 10^6/uL (3.85-5.65); White Blood Count 18.86 10^3/uL (3.29-11.43)
[2024-10-23] MEDS: diphenhydrAMINE 50 mg/mL SDV 1mL 25 MG IVP ×2 (05:45→20:54)
[2024-10-23 06:07] LABS: Anion Gap 19.8 (5-19); Blood Urea Nitrogen 12 mg/dL (8-23); Calcium 9.0 mg/dL (8.5-10.5); Carbon Dioxide 20 mmol/L (22-29); Chloride 94 mmol/L (98-107); Creatinine Clr Calc Pharmacy 59.8347; Glucose 207 mg/dL (65-115); Osmolality Calculated 274 mOsm/kg (285-295); Potassium 4.8 mmol/L (3.5-5.1); Sodium 129 mmol/L (136-145)
[2024-10-23 06:15] LABS: Estmated Average Glucose 114; Hemoglobin A1C 5.6 % (4.0-6.0)
[2024-10-23 06:30] LABS: Troponin 5 6HR 620.9 ng/L (0-10); Troponin 5 6HR Delta 569.9 ng/L (0-12)
[2024-10-23 06:36] LABS: Cholesterol 290 mg/dL (0-200); HDL Cholesterol 78 mg/dL (60-100); Thyroid Stimulating Hormone 0.30 uIU/mL (0.27-4.20); Triglycerides 70 mg/dL (0-150)
--- NOTE | 2024-10-23 07:47 | PM.CONSULT ---
Providers/Reason For Consult Consulting Physician/Specialty*: DANIA Fernandez MD/cardiology Reason for Consult*: Patient with the chest pain and elevated troponin T Requesting Physician: Dr. Vieyra with Attending Physician: Melo Vieyra MD Primary Care Provider: Shad Allen MD History of Present Illness History of Present Illness Darlin Riley is a 79 year old female with a history of hypertension and dyslipidemia is admitted to the hospital through the emergency room where she presented with complaints of generalized rashes, and chest pain. She was found to have elevated troponin T. Cardiology consult is requested for further cardiac evaluation and recommendations. This patient has no previous history of coronary coronary disease, myocardial infarction or congestive heart failure. She apparently was working out in the field with her tractor. She started noticing erythematous diffuse rashes in the exposed parts of the body, urticarial in nature. By Tuesday morning, these rashes became more prominent and causing at bedtime. For this reason, she was seen in the urgent care clinic. Patient was given intramuscular injections of dexamethasone and prednisone. She was sent home with the p.o. prednisone. Patient also has been taking Benadryl at home. But in the afternoon, she started having pain in the lower substernal region, radiating across the chest. It was 5/10 in intensity to begin with. As time progressed, the pain started getting worse. For this reason, she called the ambulance. She was given epinephrine injection intravenously. She had some symptomatic tachycardia following the injection. Her chest pain made her lasted for half an hour or so. By the time she reached the emergency room, the symptoms started subsiding. At the time of my examination, patient has no chest pain. Her rashes seems to be slowly fading away. She denies any shortness of breath. Patient has no significant family history for atherosclerotic heart disease. She has no siblings. Denies any smoking abuse, alcohol abuse or substance abuse. She has a history suggestive of anaphylactic reactions to aspirin and penicillin. No history for any reaction to iodine. She can eat shrimp without any difficulty. Has not been taking any new medications recently either prescription or [id number]. No recent changes in the dietary habits. No exposure to any unusual perfumes. Review of Systems Narrative: CONSTITUTIONAL: No fever or chills. EYES: No blurring of vision or other visual disturbances lately. ENT: No hoarseness of voice, auditory disturbances or sore throat. CARDIOVASCULAR: As mentioned above. RESPIRATORY: No significant cough. GASTROINTESTINAL: History suggestive of GERD GENITOURINARY: No dysuria or hematuria. INTEGUMENTARY: History of skin cancer. NEURO: No transient ischemic attacks or amaurosis. PSYCHIATRIC: No history of psychosis or major depression. HEMATOLOGIC: No bleeding disorders or significant anemia. ENDOCRINE: No history of polyuria or polydipsia. MUSCULOSKELETAL: No recent joint pain or swelling. ALLERGY/IMMUNOLOGY: As mentioned above. Medications/Allergies Home Medications ?Medication ?Instructions ?Recorded ?Confirmed ?Last Taken ?Type hydralazine 25 mg tablet 25 mg PO DAILY 01/15/20 10/23/24 Unknown History hydrochlorothiazide 25 mg tablet 25 mg PO DAILY 01/15/20 10/23/24 Unknown History lisinopril 40 mg tablet 40 mg PO DAILY 01/15/20 10/23/24 Unknown History fluoxetine 10 mg capsule 10 mg PO DAILY 04/15/21 10/23/24 Unknown History cholecalciferol (vitamin D3) 1,250 50,000 mcg PO Q7D 10/21/24 10/23/24 Unknown History mcg (50,000 unit) capsule famotidine 40 mg tablet (Pepcid) 40 mg PO BID #10 tabs 10/21/24 10/23/24 Unknown Rx rimantadine 100 mg tablet 100 mg PO DAILY 10/21/24 10/23/24 Unknown History (Flumadine) felodipine 5 mg tablet,extended 5 mg PO DAILY 10/23/24 10/23/24 Unknown History release 24 hr tizanidine 4 mg tablet 4 mg PO Q6H PRN muscle spasms 10/23/24 10/23/24 Unknown History Allergies Allergy/AdvReac Type Severity Reaction Status Date / Time aspirin Allergy hives, Verified 04/20/24 07:15 can't breath, throat swells penicillin G Allergy a long Verified 04/20/24 07:15 time ago Current Medications Generic Name Dose Route Start Last Admin Trade Name Freq PRN Reason Stop Dose Admin Atorvastatin Calcium 40 mg 10/23/24 01:39 10/23/24 03:06 Atorvastatin 40 Mg Tablet PO 40 mg BEDTIME ELZBIETA Administration Cetirizine HCl 10 mg 10/23/24 01:39 10/23/24 03:06 Cetirizine 10 Mg Tablet PO 10 mg Q24H ELZBIETA Administration Diphenhydramine HCl 25 mg 10/23/24 04:34 10/23/24 05:45 Diphenhydramine 50 Mg/Ml Sdv 1ml IVP 25 mg Q6H PRN Administration ITCHING Famotidine 20 mg 10/23/24 01:39 10/23/24 03:06 Famotidine 20 Mg/2 Ml Inj IVP 20 mg Q12H ELZBIETA Administration Potassium Chloride 100 mls @ 50 mls/hr 10/22/24 23:45 10/23/24 03:46 K-Gerardo Premix IV Infused ONCE ELZBIETA Infusion Heparin Sodium/Sodium Chloride 25,000 unit in 500 mls @ 16.329 mls/hr 10/23/24 01:45 10/23/24 03:14 Heparin Drip IV 12 unit/kg/hr .Q24H ELZBIETA 16.33 mls/hr 12 UNIT/KG/HR Administration PFSH Acute PFSH: Medical History HTN (hypertension) Hyperlipemia History of nonmelanoma skin cancer Surgical History History of D&C History of repair of rotator cuff Family History Mother Cancer Other COPD (chronic obstructive pulmonary disease) Social History Smoking and tobacco/nicotine status: never used tobacco/nicotine Alcohol intake: current Alcohol intake frequency: 0-2 Drinks per Day Alcohol type: wine Marital status: Vitals/I&O/Wt Last Vital Signs Temp 97.9 F 10/23/24 03:45 Pulse 65 10/23/24 05:20 Resp 25 H 10/23/24 04:00 BP 121/71 10/23/24 04:00 Pulse Ox 98 10/23/24 04:00 O2 Del Method Room Air 10/23/24 03:45 10/22/24 10/23/24 10/23/24 22:59 06:59 14:59 Intake Total 600 / 600 Balance 600 / 600 Weight last 48 hrs Weight 151 lb 0.266 oz Weight 151 lb 0.266 oz Weight 150 lb Physical Exam Narrative: GENERAL: The patient is alert and oriented times three. Not in any acute distress. HEENT: No significant pallor, icterus or lymphadenopathy.Oral cavity: There are no mucous membrane lesions. NECK: Trachea appears to be central. No masses noted. No JVD or thyromegaly appreciated. RESPIRATORY: Chest is symmetrical. No intercostals muscle retraction or any accessory muscle activation. There is no chest wall tenderness. Breath sounds are heard bilaterally. No rales or rhonchi heard. No evidence of any consolidation. BREASTS: Deferred. HEART: The heart sounds are normal. No S3 or S4. No significant murmurs. No pericardial rub ABDOMEN: No vessel pulsations or distention. No tenderness. No organomegaly appreciated. Bowel sounds are normally heard. : Deferred. RECTAL: Deferred. LYMPHATIC: No lymphadenopathy noted in the neck. EXTREMITIES: No edema or cyanosis. No clubbing. MUSCULOSKELETAL: No acute joint deformities or swelling SKIN: Generalized erythematous skin rashes mostly on the exposed parts of the body-lower and upper extremities, around head and neck areas NEUROPSYCHIATRIC: The patient is alert and oriented x3. Appears to be in a good mood. No tremors or rigidity noted. Data 10/23/24 05:15 10/23/24 05:15 Other Labs: Laboratory Last Values WBC 18.86 10^3/uL (3.29-11.43) H 10/23/24 05:15 RBC 4.32 10^6/uL (3.85-5.65) 10/23/24 05:15 Hgb 13.50 g/dL (11.27-16.99) 10/23/24 05:15 Hct 40.2 % (36-47) 10/23/24 05:15 MCV 93.1 fl (85-98) 10/23/24 05:15 MCH 31.3 pg (27-33) 10/23/24 05:15 MCHC 33.6 g/dL (30-55) 10/23/24 05:15 RDW 11.9 % (12.1-15.1) L 10/23/24 05:15 Plt Count 262 10^3/cmm (157-399) 10/23/24 05:15 MPV 10.9 fL (7.4-10.4) H 10/23/24 05:15 Neut % (Auto) 91.4 % 10/23/24 05:15 Lymph % (Auto) 6.9 % 10/23/24 05:15 Jack % (Auto) 1.0 % 10/23/24 05:15 Eos % (Auto) 0.0 % 10/23/24 05:15 Baso % (Auto) 0.2 % 10/23/24 05:15 Neut # (Auto) 17.24 10^3/uL (1.8-7.7) H 10/23/24 05:15 Lymph # (Auto) 1.3 10^3/uL (0.8-4.8) 10/23/24 05:15 Jack # (Auto) 0.2 10^3/uL (0.2-0.9) 10/23/24 05:15 Eos # (Auto) 0.0 10^3/uL (0.0-0.8) 10/23/24 05:15 Baso # (Auto) 0.0 10^3/uL (0.0-0.1) 10/23/24 05:15 Nucleated RBC % (auto) 0 % 10/23/24 05:15 Nucleated RBCs # 0.0 /100WBC 10/23/24 05:15 APTT 56.5 SECONDS (23.9-36.7) H 10/23/24 16:37 Sodium 129 mmol/L (136-145) L 10/23/24 05:15 Potassium 4.8 mmol/L (3.5-5.1) 10/23/24 05:15 Chloride 94 mmol/L (98-107) L 10/23/24 05:15 Carbon Dioxide 20 mmol/L (22-29) L 10/23/24 05:15 Anion Gap 19.8 (5-19) H 10/23/24 05:15 BUN 12 mg/dL (8-23) 10/23/24 05:15 Creatinine 0.7 mg/dL (0.5-0.9) 10/23/24 05:15 GFR Calculation Not Reportable 10/23/24 05:15 Glucose 207 mg/dL (65-115) H 10/23/24 05:15 Estimat Average Glucose 114 10/23/24 05:15 Hemoglobin A1c 5.6 % (4.0-6.0) 10/23/24 05:15 Calculated Osmolality 274 mOsm/kg (285-295) L 10/23/24 05:15 Calcium 9.0 mg/dL (8.5-10.5) 10/23/24 05:15 Troponin T Baseline 51 ng/L (0-10) H 10/22/24 23:15 Troponin T 120 Minute 375.1 ng/L (0-10) H 10/23/24 01:00 Delta Troponin T 324.1 ABS# (0-10) H* 10/23/24 01:00 Troponin T Hi Sens 6Hr 620.9 ng/L (0-10) H 10/23/24 05:15 Troponin T Hi Sens 6Hr Delta 569.9 ng/L (0-12) H* 10/23/24 05:15 NT-Pro-B Natriuret Pep 151 pg/mL (0-450) 10/22/24 23:15 Triglycerides 70 mg/dL (0-150) 10/23/24 05:15 Cholesterol 290 mg/dL (0-200) H 10/23/24 05:15 LDL Cholesterol, Calc 198 mg/dL (50-129) H 10/23/24 05:15 HDL Cholesterol 78 mg/dL (60-100) 10/23/24 05:15 LDL/HDL Ratio 2.54 RATIO (0.00-3.22) 10/23/24 05:15 Cholesterol/HDL Ratio 3.72 mg/dL (0.0-4.40) 10/23/24 05:15 TSH 0.30 uIU/mL (0.27-4.20) 10/23/24 05:15 Urine Color Yellow (Yellow) 10/23/24 07:50 Urine Appearance Clear (CLEAR) 10/23/24 07:50 Urine pH 7.0 (5-7) 10/23/24 07:50 Ur Specific [place] 1.019 (1.005-1.030) 10/23/24 07:50 Urine Protein 1+ (Negative) A 10/23/24 07:50 Urine Glucose (UA) 1+ (Normal) H 10/23/24 07:50 Urine Ketones Trace (Negative) 10/23/24 07:50 Urine Blood Negative (Negative) 10/23/24 07:50 Urine Nitrate Negative (Negative) 10/23/24 07:50 Urine Bilirubin Negative (Negative) 10/23/24 07:50 Urine Urobilinogen 1.0 mg/dL (Negative) 10/23/24 07:50 Ur Leukocyte Esterase 1+ (Negative) A 10/23/24 07:50 Urine RBC 0-2 /hpf (0-2) 10/23/24 07:50 Urine WBC 6-10 /hpf (0-5) 10/23/24 07:50 Ur Squamous Epith Cells 0-5 /hpf (0-5) 10/23/24 07:50 Amorphous Sediment Not Reportable 10/23/24 07:50 Urine Bacteria None seen /hpf (NONE) 10/23/24 07:50 Hyaline Casts 2.05 /lpf 10/23/24 07:50 A&P Assessment and plan 1. Unstable angina pectoris: The patient chest pain is suggestive of unstable angina. The EKG changes are nonspecific. Hemodynamically she seems to be stable. 2. Elevated troponin: The elevated troponin T and the abnormal EKG are suggestive of a non-ST elevation myocardial infarction. 3. Allergic reaction, subsequent encounter: The etiology of the allergy is not clear at this time. Patient was tested for alpha gal but the results are pending. Since it happened in the field while she was using her tractor, it is very possible that some environment will factors/plants causing the allergy. It seems to be improving. Apparently she has some waxing and waning nature. 4. Acute hypokalemia: The potassium is being supplemented. 5. Dyslipidemia: This is being treated at this time. She has a questionable history of intolerance to simvastatin. But she apparently did okay with the rosuvastatin. Plan: Other problems are Leukocytosis-possibly from the steroids/allergic reaction I will review the echocardiogram. Will start her on Plavix p.o. 300 mg now followed by 75 mg p.o. daily. May be started on a low-dose of beta-raghu. Continue on the IV heparin Patient requires a cardiac catheterization to further evaluate the coronary status. I will wait till the allergic reaction is appropriately treated before going ahead with an angiogram Based on the clinical progress, further recommendations will be made Repeat CBC and BMP in the morning Keep n.p.o. after midnight Addendum 4:30 PM echocardiogram revealed LV ejection fraction of 46%. Diffuse hypokinesis of LV apex. The allergic rashes are disappearing Discussed with the patient the need for echocardiogram exertion to decide on further management. Patient is wanting to go ahead with this. The risk of bleeding, hematoma, vascular injury, myocardial infarction, myocardial perforation, malignant cardiac arrhythmias ,CVA, renal failure and other concomitant complications were explained in detail. Patient understood this well and consented to proceed We will go ahead and schedule the procedure for the morning PDMP PDMP Reviewed: Not Reviewed Coding Level of Care Code 61919 Diagnoses Unstable angina pectoris I20.0 Chest pain type: chest pain due to myocardial ischemia Ischemic chest pain type: unstable angina pectoris Elevated troponin R79.89 Allergic reaction, subsequent encounter T78.40XD Encounter type: subsequent encounter Acute hypokalemia E87.6 Dyslipidemia E78.5
[2024-10-23 08:24] LABS: Glucose Urine UA 1+ (Normal); Nitrate Urine Negative (Negative); Specific Gravity, Urine 1.019 (1.005-1.030)
[2024-10-23 08:27] LABS: Add Urine Microscopic? YES
[2024-10-23] MEDS: methylPREDNISolone sod succ 40 mg/mL INJ IVP ×2 (08:29→20:57)
--- NOTE | 2024-10-23 09:19 | PC.PHAR ---
Pt has Flumadine 100mg daily on current med list. Verified in pt history 10/21/24. [facility] states they have not filled since 2022 and pt is not taking. Unable to verify with pt at this time.
[2024-10-23 09:39] LABS: Partial Thromboplastin Time 84.9 SECONDS (23.9-36.7)
[2024-10-23] MEDS: heparin drip 25,000 UNIT/500 ML PREMIX 9 UNIT IV (10:48)
[2024-10-23 17:30] LABS: Partial Thromboplastin Time 56.5 SECONDS (23.9-36.7)
--- NOTE | 2024-10-23 19:18 | P.PN_ITS ---
Subjective 2 Subjective: the patient was seen in the morning, and no chest pain or any sob. no dizziness. she has bilateral arm rash that is improving the patient had concerns about going home to take care of her who has cancer, however atfer thorough discussion about the risks and complications, the patient agreed to stay and to follow the plan of care. patients relative/friend reassured her that her will be taken care of. the patient felt releived. Vitals/I&O/Wt Last Vital Signs Temp 98.3 F 10/23/24 08:30 Pulse 69 10/23/24 17:00 Resp 22 H 10/23/24 17:00 BP 115/92 10/23/24 17:00 Pulse Ox 100 10/23/24 17:00 O2 Del Method Room Air 10/23/24 09:06 10/23/24 10/23/24 10/23/24 06:59 14:59 22:59 Intake Total 600 / 600 243.742 / 243.742 240 / 483.742 Balance 600 / 600 243.742 / 243.742 240 / 483.742 Weight last 48 hrs Weight 68.5 kg Weight 68.5 kg Weight 68.039 kg Physical Exam 2 Const: OTHER: General: Alert oriented x3, patient seen lying comfortably on the bed HEENT: Normocephalic, atraumatic, EOMI, breathing without any distress on room air with normal oxygen sats Cardio: Regular rate rhythm, normal S1-S2, no murmurs rubs gallops, JVD normal Respiratory: Good bilateral air entry, no wheezes no rhonchi appreciated GI: Abdomen soft, nontender, nondistended, normoactive bowel sounds present all 4 quadrants, Neuro: Cranial nerves II to XII intact, strength 5/5, sensation 5/5, no gross neurological deficit Behavior: Appropriate and cooperative Extremities: Pulses 2+, no edema, no cyanosis Skin: Visible skin intact, bilateral rashes on the arms Data 10/23/24 05:15 10/23/24 05:15 A&P Assessment and plan 1. Allergic reaction, subsequent encounter: 2. Elevated troponin: 3. Hypokalemia: 4. Other chest pain: 5. Dyslipidemia: 6. Acute hypokalemia: 7. History of nonmelanoma skin cancer: Plan: - Hypokalemia - Receiving IV and p.o. replacement and repeat was in normal range Allergic reaction versus poison frida exposure currently in her bilateral arm rash is improving - Epinephrine as needed - Solu-Medrol 40 mg IV every 12 hours - Zyrtec - Pepcid - Monitor closely Chest pain/resolved - With elevated troponins - Serial EKGs, serial troponins, telemetry monitoring - The patient is scheduled to have a cath tomorrow as per Dr. Fernandez/minister assistant - Has aspirin allergy - Statin 40 mg daily continue Hypertension: - Continue on lisinopril 40 mg, hydrochlorothiazide 25 OD, and hydralazine 25 mg daily as per home medication Full code Lovenox for DVT prophylaxis PDMP PDMP Reviewed: Not Reviewed Attestations 2 Medical Necessity Statement*: Patient will stay more than 2 midnights for her optimization of care Time Spent in Patient Care: I spent 75 minutes on this encounter before, during and after the visit, examining the patient, reviewing labs, writing orders and documenting the note and discussing with nursing staff taking care of the patient. The high probability of a clinically significant, sudden or life threatening deterioration of the patient's [] system(s) required my full and direct attention, intervention and personal management. The critical care time is as shown. This time is in addition to time spent performing any reported procedures but includes the following: [x] discussing the patient current condition, acute illness with benefits and risk of the treatment without any language barrier. [x] Data and vital sign review and interpretation [x] Patient assessment, examination and intervention [x] Documentation [x] Medication orders and management Critical Care Time: 75 Other Attestations: This documentation was created by [employer] retail client solutions analyst software. Every effort was made to ensure accuracy of retail client solutions analyst.? Any obvious errors or omissions should be clarified with the author of the document. Coding Level of Care Code Critical Care >/= 30 minutes Diagnoses Allergic reaction, subsequent encounter T78.40XD Encounter type: subsequent encounter Elevated troponin R79.89 Hypokalemia E87.6 Other chest pain R07.89 Chest pain type: other chest pain Dyslipidemia E78.5 Acute hypokalemia E87.6 History of nonmelanoma skin cancer Z85.828
--- NOTE | 2024-10-23 20:32 | ECG_ITS ---
[facility] 2024[facility]23 Pat Name: Darlin Riley Department: Room: [facility] Gender: Female Sensitizer: : 1945 Requested By: Melo Vieyra Order Number: [id number] Esther MD: Wendy Fernandez M.D. Measurements Intervals [place] Rate: 57 P: 68 MS: 164 QRS: 65 QRSD: 102 T: 176 QT: 504 QTc: 492 Interpretive Statements SINUS BRADYCARDIA MODERATE T-WAVE ABNORMALITY, CONSIDER ANTEROLATERAL ISCHEMIA [-0.1+ mV T-WAVE IN V3-V6] Compared to ECG 10/23/2024 04:39:54 Possible ischemia now present Sinus rhythm no longer present T-wave abnormality still present Electronically Signed On 10-23-2024 22:56:30 CDT by Wendy Fernandez M.D. [email or web address]
[2024-10-23 23:12] LABS: Partial Thromboplastin Time 46.4 SECONDS (23.9-36.7)
--- NOTE | 2024-10-23 23:19 | PC.NURSE ---
PTT resulted at 2240, titrated per protocol. PTT q6h order placed per protocol.
[2024-10-24] VITALS (82 sets, daily range): BP systolic 89–149; BP diastolic 40–117; PULSE 46–65; RESP 7–24; TEMP 36.7–37.3; O2SAT 89–99
[2024-10-24 04:46] LABS: Hematocrit 37.3 % (36-47); Hemoglobin 12.80 g/dL (11.27-16.99); Mean Corpuscular HGB Conc 34.3 g/dL (30-55); Mean Corpuscular Hemoglobin 32.2 pg (27-33); Mean Corpuscular Volume 94.0 fl (85-98); Platelet Count 249 10^3/cmm (157-399); Red Blood Count 3.97 10^6/uL (3.85-5.65); White Blood Count 19.63 10^3/uL (3.29-11.43)
[2024-10-24 04:47] LABS: Nucleated Red Blood Cells % 0 %
[2024-10-24 04:56] LABS: Partial Thromboplastin Time 54.9 SECONDS (23.9-36.7)
[2024-10-24 05:02] LABS: Blood Urea Nitrogen 20 mg/dL (8-23); Calcium 8.4 mg/dL (8.5-10.5); Carbon Dioxide 20 mmol/L (22-29); Chloride 99 mmol/L (98-107); Creatinine Clr Calc Pharmacy 59.8347; Glucose 181 mg/dL (65-115); Osmolality Calculated 279 mOsm/kg (285-295); Sodium 131 mmol/L (136-145)
[2024-10-24 05:03] LABS: Anion Gap 16.1 (5-19); Potassium 4.1 mmol/L (3.5-5.1)
--- NOTE | 2024-10-24 05:27 | PC.NURSE ---
Timed PTT q6h per protocol placed per protocol for 1130
--- NOTE | 2024-10-24 07:03 | P.PN_ITS ---
Subjective 2 Subjective: The patient had an episode of chest pain and low blood pressure last night. Her EKG showed diffuse T inversions in the anterolateral and high lateral leads. No ST elevation. Her blood pressure was in the 90s. It spontaneously improved. Her chest pain had started after she went to the bathroom. The chest pain also gradually improved without any intervention. Denies any unusual shortness of breath. No fever or chills. Rashes are improving. The white cell count is still elevated . Medications: Medication Review Details: Current Medications Acetaminophen (Acetaminophen 325 Mg Tablet) 650 mg PO Q6H PRN PRN Reason: Mild/Mod Pain Or Temp >/= 101 Atorvastatin Calcium (Atorvastatin 40 Mg Tablet) 40 mg PO BEDTIME [facility] Last Admin: 10/23/24 20:57 Dose: 40 mg Cetirizine HCl (Cetirizine 10 Mg Tablet) 10 mg PO Q24H [facility] Last Admin: 10/24/24 02:23 Dose: 10 mg Clopidogrel Bisulfate (Clopidogrel 75 Mg Tablet) 75 mg PO DAILY [facility] Diphenhydramine HCl (Diphenhydramine 50 Mg/Ml Sdv 1ml) 25 mg IVP Q6H PRN PRN Reason: ITCHING Last Admin: 10/23/24 20:54 Dose: 25 mg Epinephrine HCl (Epinephrine 1 Mg/Ml Inj) 0.3 mg IM PRN PRN PRN Reason: ANAPHYLAXIS Famotidine (Famotidine 20 Mg/2 Ml Inj) 20 mg IVP Q12H [facility] Last Admin: 10/24/24 02:23 Dose: 20 mg Fluoxetine HCl (Fluoxetine 10 Mg Capsule) 10 mg PO DAILY [facility] Last Admin: 10/23/24 08:25 Dose: 10 mg Hydralazine HCl (Hydralazine 25 Mg Tablet) 25 mg PO DAILY [facility] Last Admin: 10/23/24 08:30 Dose: Not Given Hydrochlorothiazide (Hydrochlorothiazide 25 Mg Tablet) 25 mg PO DAILY [facility] Last Admin: 10/23/24 08:30 Dose: Not Given Potassium Chloride (K-Gerardo Premix) 100 mls @ 50 mls/hr IV ONCE [facility] Last Infusion: 10/23/24 03:46 Dose: Infused Heparin Sodium/Sodium Chloride (Heparin Drip) 25,000 unit in 500 mls @ 0 mls/hr IV CONT [facility]; Protocol Last Titration: 10/23/24 23:13 Dose: 11.68 unit/kg/hr, 16 mls/hr Sodium Chloride (Sodium Chloride 0.9%) 1,000 mls @ 50 mls/hr IV .Q20H ONE Stop: 10/24/24 16:11 Last Admin: 10/24/24 05:22 Dose: 50 mls/hr Lisinopril (Lisinopril 20 Mg Tablet) 40 mg PO DAILY [facility] Last Admin: 10/23/24 08:30 Dose: Not Given Methylprednisolone Sodium Succinate (Methylprednisolone Sod Succ 40 Mg/Ml Inj) 40 mg IVP Q12H [facility] Last Admin: 10/23/24 20:57 Dose: 40 mg Morphine Sulfate (Morphine 4 Mg/Ml Sdv 1 Ml) 1 mg IVP Q4H PRN PRN Reason: SEVERE PAIN Naloxone HCl (Naloxone 0.4 Mg/Ml Sdv) 0.1 mg IVP Q2M PRN PRN Reason: OPIATERV Nitroglycerin (Nitroglycerin 0.4 Mg Sublingual Tablet) 0.4 mg SUBLINGUAL Q5M PRN PRN Reason: CHEST PAIN Ondansetron HCl (Ondansetron 2 Mg/Ml Sdv 2 Ml) 4 mg IVP Q8H PRN PRN Reason: vomiting, or N/V if npo Vitals/I&O/Wt Last Vital Signs Temp 98.0 F 10/24/24 03:30 Pulse 54 L 10/24/24 05:31 Resp 15 10/24/24 04:00 BP 106/54 10/24/24 03:30 Pulse Ox 96 10/24/24 04:00 O2 Del Method Room Air 10/23/24 09:06 10/23/24 10/24/24 10/24/24 22:59 06:59 14:59 Intake Total 240 / 483.742 185.5 / 669.242 Output Total 400 / 400 100 / 500 Balance -160 / 83.742 85.5 / 169.242 Weight last 48 hrs Weight 151 lb 0.266 oz Weight 151 lb 0.266 oz Weight 151 lb 0.266 oz Weight 150 lb Physical Exam 2 Narrative: GENERAL: The patient is alert and oriented times three. Not in any acute distress. HEENT: No significant pallor, icterus or lymphadenopathy.Oral cavity: There are no mucous membrane lesions. NECK: Trachea appears to be central. No masses noted. No JVD or thyromegaly appreciated. RESPIRATORY: Chest is symmetrical. No intercostals muscle retraction or any accessory muscle activation. There is no chest wall tenderness. Breath sounds are heard bilaterally. No rales or rhonchi heard. No evidence of any consolidation. BREASTS: Deferred. HEART: The heart sounds are normal. No S3 or S4. No significant murmurs. No pericardial rub ABDOMEN: No vessel pulsations or distention. No tenderness. No organomegaly appreciated. Bowel sounds are normally heard. : Deferred. RECTAL: Deferred. LYMPHATIC: No lymphadenopathy noted in the neck. EXTREMITIES: No edema or cyanosis. No clubbing. MUSCULOSKELETAL: No acute joint deformities or swelling SKIN: Generalized erythematous skin rashes mostly on the exposed parts of the body-lower and upper extremities, around head and neck areas-seems to be improving NEUROPSYCHIATRIC: The patient is alert and oriented x3. Appears to be in a good mood. No tremors or rigidity noted. Data 10/24/24 04:34 10/24/24 04:34 Other Labs: Laboratory Last Values WBC 19.63 10^3/uL (3.29-11.43) H 10/24/24 04:34 RBC 3.97 10^6/uL (3.85-5.65) 10/24/24 04:34 Hgb 12.80 g/dL (11.27-16.99) 10/24/24 04:34 Hct 37.3 % (36-47) 10/24/24 04:34 MCV 94.0 fl (85-98) 10/24/24 04:34 MCH 32.2 pg (27-33) 10/24/24 04:34 MCHC 34.3 g/dL (30-55) 10/24/24 04:34 RDW 12.0 % (12.1-15.1) L 10/24/24 04:34 Plt Count 249 10^3/cmm (157-399) 10/24/24 04:34 MPV 10.6 fL (7.4-10.4) H 10/24/24 04:34 Neut % (Auto) 87.5 % 10/24/24 04:34 Lymph % (Auto) 8.0 % 10/24/24 04:34 Phillips % (Auto) 3.3 % 10/24/24 04:34 Eos % (Auto) 0.0 % 10/24/24 04:34 Baso % (Auto) 0.2 % 10/24/24 04:34 Neut # (Auto) 17.18 10^3/uL (1.8-7.7) H 10/24/24 04:34 Lymph # (Auto) 1.6 10^3/uL (0.8-4.8) 10/24/24 04:34 Phillips # (Auto) 0.7 10^3/uL (0.2-0.9) 10/24/24 04:34 Eos # (Auto) 0.0 10^3/uL (0.0-0.8) 10/24/24 04:34 Baso # (Auto) 0.0 10^3/uL (0.0-0.1) 10/24/24 04:34 Nucleated RBC % (auto) 0 % 10/24/24 04:34 Nucleated RBCs # 0.0 /100WBC 10/24/24 04:34 APTT 54.9 SECONDS (23.9-36.7) H 10/24/24 04:34 Sodium 131 mmol/L (136-145) L 10/24/24 04:34 Potassium 4.1 mmol/L (3.5-5.1) 10/24/24 04:34 Chloride 99 mmol/L (98-107) 10/24/24 04:34 Carbon Dioxide 20 mmol/L (22-29) L 10/24/24 04:34 Anion Gap 16.1 (5-19) 10/24/24 04:34 BUN 20 mg/dL (8-23) 10/24/24 04:34 Creatinine 0.7 mg/dL (0.5-0.9) 10/24/24 04:34 GFR Calculation Not Reportable 10/24/24 04:34 Glucose 181 mg/dL (65-115) H 10/24/24 04:34 Estimat Average Glucose 114 10/23/24 05:15 Hemoglobin A1c 5.6 % (4.0-6.0) 10/23/24 05:15 Calculated Osmolality 279 mOsm/kg (285-295) L 10/24/24 04:34 Calcium 8.4 mg/dL (8.5-10.5) L 10/24/24 04:34 Troponin T Baseline 51 ng/L (0-10) H 10/22/24 23:15 Troponin T 120 Minute 375.1 ng/L (0-10) H 10/23/24 01:00 Delta Troponin T 324.1 ABS# (0-10) H* 10/23/24 01:00 Troponin T Hi Sens 6Hr 620.9 ng/L (0-10) H 10/23/24 05:15 Troponin T Hi Sens 6Hr Delta 569.9 ng/L (0-12) H* 10/23/24 05:15 NT-Pro-B Natriuret Pep 151 pg/mL (0-450) 10/22/24 23:15 Triglycerides 70 mg/dL (0-150) 10/23/24 05:15 Cholesterol 290 mg/dL (0-200) H 10/23/24 05:15 LDL Cholesterol, Calc 198 mg/dL (50-129) H 10/23/24 05:15 HDL Cholesterol 78 mg/dL (60-100) 10/23/24 05:15 LDL/HDL Ratio 2.54 RATIO (0.00-3.22) 10/23/24 05:15 Cholesterol/HDL Ratio 3.72 mg/dL (0.0-4.40) 10/23/24 05:15 TSH 0.30 uIU/mL (0.27-4.20) 10/23/24 05:15 Urine Color Yellow (Yellow) 10/23/24 07:50 Urine Appearance Clear (CLEAR) 10/23/24 07:50 Urine pH 7.0 (5-7) 10/23/24 07:50 Ur Specific Cement 1.019 (1.005-1.030) 10/23/24 07:50 Urine Protein 1+ (Negative) A 10/23/24 07:50 Urine Glucose (UA) 1+ (Normal) H 10/23/24 07:50 Urine Ketones Trace (Negative) 10/23/24 07:50 Urine Blood Negative (Negative) 10/23/24 07:50 Urine Nitrate Negative (Negative) 10/23/24 07:50 Urine Bilirubin Negative (Negative) 10/23/24 07:50 Urine Urobilinogen 1.0 mg/dL (Negative) 10/23/24 07:50 Ur Leukocyte Esterase 1+ (Negative) A 10/23/24 07:50 Urine RBC 0-2 /hpf (0-2) 10/23/24 07:50 Urine WBC 6-10 /hpf (0-5) 10/23/24 07:50 Ur Squamous Epith Cells 0-5 /hpf (0-5) 10/23/24 07:50 Amorphous Sediment Not Reportable 10/23/24 07:50 Urine Bacteria None seen /hpf (NONE) 10/23/24 07:50 Hyaline Casts 2.05 /lpf 10/23/24 07:50 Other data: EKG from last night revealed a diffuse T inversions in the anterolateral leads and nonspecific ST changes A&P Assessment and plan 1. Unstable angina pectoris: The patient chest pain is suggestive of unstable angina. The new EKG changes are suggestive of anterolateral ischemia. Currently she seems to be stable. Had an episode of hypotension with the chest pain. Currently the blood pressure is in the normal range. 2. Left ventricular systolic dysfunction (LVSD): The LV ejection fraction was 46% by echocardiogram. No evidence of any heart failure. 3. Elevated troponin: The elevated troponin T and the abnormal EKG are suggestive of a non-ST elevation myocardial infarction. The repeat troponin T from this morning is pending. 4. Allergic reaction, subsequent encounter: The etiology of the allergy is not clear at this time. Patient was tested for alpha gal but the results are pending. Since it happened in the field while she was using her tractor, it is very possible that some environmental factors/plants causing the allergy. It seems to be improving. Apparently she has some waxing and waning nature. 5. Acute hypokalemia: Potassium levels are normal 6. Dyslipidemia: This is being treated at this time. She has a questionable history of intolerance to simvastatin. But she apparently did okay with the rosuvastatin. Plan: Other problems are Leukocytosis-possibly from the steroids/allergic reaction. Still remains elevated In view of the patient's recurrent episodes of chest pain, clinical features of non-ST elevation myocardial infarction, LV dysfunction by echocardiogram, it would be appropriate to go ahead with the cardiac catheterization as early as possible. I discussed the patient once again in detail the risk and benefits. The risk of bleeding, hematoma, vascular injury, myocardial infarction, myocardial perforation, malignant cardiac arrhythmias ,CVA, renal failure and other concomitant complications were explained in detail. Patient understood this well and consented to proceed. Will go ahead and do the cardiac catheterization this morning Based on the angiogram findings, further management decisions will be made. Will go ahead and do a troponin T on the blood in the lab PDMP PDMP Reviewed: Not Reviewed Attestations 2 Medical Necessity Statement*: Patient requires continued hospital stay for close monitoring and further management Coding Level of Care Code 30661 Diagnoses Unstable angina pectoris I20.0 Chest pain type: chest pain due to myocardial ischemia Ischemic chest pain type: unstable angina pectoris Left ventricular systolic dysfunction (LVSD) I51.89 Elevated troponin R79.89 Allergic reaction, subsequent encounter T78.40XD Encounter type: subsequent encounter Acute hypokalemia E87.6 Dyslipidemia E78.5
--- NOTE | 2024-10-24 07:06 | W.PM.OPSUD ---
Surgery/Procedure H&P Update DATE OF PROCEDURE: October 24, 2024 DATE H&P PERFORMED: 10/23/24 H&P UPDATE INFORMATION: I have reviewed H&P completed within last 30 days, I have examined patient prior to procedure and No changes to prior documentation PREOP DIAGNOSIS: ASHD PRIMARY INDICATION FOR PROCEDURE: Unstable angina/non-ST elevation myocardial infarction PLANNED PROCEDURE: Operation Date: 10/24/24 07:00 Proposed Procedures p Cardiac Catheterization(Left) - Wendy Fernandez MD PATIENT REASSESSED PRIOR TO SEDATION, WITH NO CHANGE NOTED: Yes PHYSICAL EXAM: alert, oriented x 3, clear to auscultation bilaterally, regular rate & rhythm and operative site marked AIRWAY EVAL/ANESTHESIA PLAN: normal airway, see other exam findings and ASA III
--- NOTE | 2024-10-24 07:47 | PM.OP ---
Operative Report Date of procedure: October 24, 2024 Surgeon: Wendy Fernandez MD Procedure: This patient was left heart catheterization with a left and right coronary angiogram and LV angiogram today using the right radial access. She tolerated the procedure well and there were no complications. She was found to have moderate disease in the ostium of the first diagonal branch of the Left anterior descending artery. The proximal left anterior descending artery was found to have moderate diffuse disease. The intermedius artery was found to have a high-grade ostial stenosis of around 80%. Circumflex artery coronary artery were found to have minimal intimal irregularities. Reviewed and discussed the cardiac catheterization data with the . It was thought to be appropriate to consider PCI of the intermedius artery lesion. Also may do a an IFR on the proximal LAD lesion to see what is Significant for intervention. Discussed the findings and the plan with the patient which she understood. There is no family members available. I offered to talk to the family members at home. Patient does not want me to do so.
[2024-10-24 07:57] LABS: Troponin T (5th) Once 373 ng/L (0-10)
--- NOTE | 2024-10-24 09:13 | P.PCN_ITS ---
Procedure Note: Date of procedure: 10/24/24 Pre-procedure diagnosis: [id number] M Post-procedure diagnosis: same Procedure: Left heart cath was performed by Dr. Fernandez please see Dr. Fernandez note for detail Left main has luminal regular LAD has proximal significant stenosis by IFR 0.85, mid LAD has mild to moderate 40 to 50% stenosis, diagonal branch has 40 to 50% stenosis Ramus intermedius is long moderate caliber vessel with high-grade 90% ostial stenosis it is coming at a difficult angle from nondominant circumflex but circumflex is also moderate size and caliber vessel. IFR was performed of proximal LAD which was 0.85 significant. LAD was treated with drug-eluting stent postdilated with noncompliant balloon. Excellent angiographic result was obtained. 2 wires were then crossed 1 in ramus int ermedius other and circumflex to protect since there were ostial bifurcating disease. Ostium of the ramus intermedius was treated with balloon angioplasty followed by drug-eluting stent. Circumflex was noted to be pinched. Patient had episode of ventricular fibrillation treated with DC cardioversion x 1, IV 150 mg of amiodarone was given. Patient tolerated well and converted back to sinus rhythm. Pain circumflex was treated with 2.0 x 8 mm balloon. Good angiographic result with SHANE-3 flow was restored. Patient tolerated procedure well and transferred to the room back in a stable condition. Plan: Continue dual antiplatelet therapy for 1 year IV fluid 100 mL/h for 1 L High intensity statin Optimal medical management including beta-raghu and BANDAR inhibitor Full note to be dictated Coding Level of Care Code Acute Code for Leticia Fwd
[2024-10-24] MEDS: methylPREDNISolone sod succ 40 mg/mL INJ IVP ×2 (09:32→21:45)
--- NOTE | 2024-10-24 14:22 | P.PN_ITS ---
Subjective 2 Subjective: The patient is post PCI today with 2 drug-eluting stents in LAD, the patient tolerated the procedure well. For detailed report refer to the cardiology note. The patient was seen in the morning did not report any chest pain, shortness of breath and was feeling well and glad that she underwent the procedure without any issues. All questions and concerns were addressed Medications: Medication Review Details: Current Medications Acetaminophen (Acetaminophen 325 Mg Tablet) 650 mg PO Q6H PRN PRN Reason: Mild/Mod Pain Or Temp >/= 101 Atorvastatin Calcium (Atorvastatin 40 Mg Tablet) 40 mg PO BEDTIME [facility] Last Admin: 10/23/24 20:57 Dose: 40 mg Cetirizine HCl (Cetirizine 10 Mg Tablet) 10 mg PO Q24H [facility] Last Admin: 10/24/24 02:23 Dose: 10 mg Clopidogrel Bisulfate (Clopidogrel 75 Mg Tablet) 75 mg PO DAILY [facility] Diphenhydramine HCl (Diphenhydramine 50 Mg/Ml Sdv 1ml) 25 mg IVP Q6H PRN PRN Reason: ITCHING Last Admin: 10/23/24 20:54 Dose: 25 mg Epinephrine HCl (Epinephrine 1 Mg/Ml Inj) 0.3 mg IM PRN PRN PRN Reason: ANAPHYLAXIS Famotidine (Famotidine 20 Mg/2 Ml Inj) 20 mg IVP Q12H [facility] Last Admin: 10/24/24 02:23 Dose: 20 mg Fluoxetine HCl (Fluoxetine 10 Mg Capsule) 10 mg PO DAILY [facility] Last Admin: 10/23/24 08:25 Dose: 10 mg Hydralazine HCl (Hydralazine 25 Mg Tablet) 25 mg PO DAILY [facility] Last Admin: 10/23/24 08:30 Dose: Not Given Hydrochlorothiazide (Hydrochlorothiazide 25 Mg Tablet) 25 mg PO DAILY [facility] Last Admin: 10/23/24 08:30 Dose: Not Given Potassium Chloride (K-Gerardo Premix) 100 mls @ 50 mls/hr IV ONCE [facility] Last Infusion: 10/23/24 03:46 Dose: Infused Heparin Sodium/Sodium Chloride (Heparin Drip) 25,000 unit in 500 mls @ 0 mls/hr IV CONT [facility]; Protocol Last Titration: 10/23/24 23:13 Dose: 11.68 unit/kg/hr, 16 mls/hr Sodium Chloride (Sodium Chloride 0.9%) 1,000 mls @ 50 mls/hr IV .Q20H ONE Stop: 10/24/24 16:11 Last Admin: 10/24/24 05:22 Dose: 50 mls/hr Lisinopril (Lisinopril 20 Mg Tablet) 40 mg PO DAILY [facility] Last Admin: 10/23/24 08:30 Dose: Not Given Methylprednisolone Sodium Succinate (Methylprednisolone Sod Succ 40 Mg/Ml Inj) 40 mg IVP Q12H [facility] Last Admin: 10/23/24 20:57 Dose: 40 mg Morphine Sulfate (Morphine 4 Mg/Ml Sdv 1 Ml) 1 mg IVP Q4H PRN PRN Reason: SEVERE PAIN Naloxone HCl (Naloxone 0.4 Mg/Ml Sdv) 0.1 mg IVP Q2M PRN PRN Reason: OPIATERV Nitroglycerin (Nitroglycerin 0.4 Mg Sublingual Tablet) 0.4 mg SUBLINGUAL Q5M PRN PRN Reason: CHEST PAIN Ondansetron HCl (Ondansetron 2 Mg/Ml Sdv 2 Ml) 4 mg IVP Q8H PRN PRN Reason: vomiting, or N/V if npo Vitals/I&O/Wt Last Vital Signs Temp 98.0 F 10/24/24 03:30 Pulse 60 10/24/24 12:30 Resp 17 10/24/24 12:30 BP 123/74 10/24/24 12:30 Pulse Ox 98 10/24/24 12:30 O2 Del Method Room Air 10/23/24 09:06 10/23/24 10/24/24 10/24/24 22:59 06:59 14:59 Intake Total 240 / 483.742 185.5 / 669.242 364.533 / 364.533 Output Total 400 / 400 100 / 500 Balance -160 / 83.742 85.5 / 169.242 364.533 / 364.533 Weight last 48 hrs Weight 68.5 kg Weight 68.5 kg Weight 68.5 kg Weight 68.039 kg Physical Exam 2 Const: OTHER: General: Alert oriented x3, patient seen lying comfortably on the bed, having a bandage on the right arm that was used for PCI approach (right radial access) HEENT: Normocephalic, atraumatic, EOMI, breathing without any distress on room air with normal oxygen sats Cardio: Regular rate rhythm, normal S1-S2, no murmurs rubs gallops, JVD normal Respiratory: Good bilateral air entry, no wheezes no rhonchi appreciated GI: Abdomen soft, nontender, nondistended, normoactive bowel sounds present all 4 quadrants, Neuro: Cranial nerves II to XII intact, strength 5/5, sensation 5/5, no gross neurological deficit Behavior: Appropriate and cooperative Extremities: Pulses 2+, no edema, no cyanosis Skin: Visible skin intact, bilateral rashes on the arms Data 10/24/24 04:34 10/24/24 04:34 A&P Assessment and plan 1. Allergic reaction, subsequent encounter: 2. Elevated troponin: 3. Dyslipidemia: 4. History of nonmelanoma skin cancer: 5. Unstable angina pectoris: Plan: Unstable angina pectoris - S/p cath with 2 drug-eluting stents placed in LAD, for detailed report refer to the cath/cardiology notes - Continue telemetry monitoring - she is allergic to aspirin and therefore since aspirin and clopidogrel needs to be given together, single agent clopidogrel will not be beneficial and after discussion with a levi maker to start on Brilinta from tomorrow with a loading dose of 180 mg stat and then to discharge on Brilinta 90 mg twice daily -Aspirin and clopidogrel to discontinue - Statin 40 mg daily continue Allergic reaction versus poison frida exposure currently in her bilateral arm rash is improving - Epinephrine as needed - Solu-Medrol 40 mg IV every 12 hours - Zyrtec - Pepcid - Monitor closely Hypertension: - Continue on lisinopril 40 mg, hydrochlorothiazide 25 OD, daily. -Monitor blood pressure and primary care physician referral at the time of discharge Full code Lovenox for DVT prophylaxis PDMP PDMP Reviewed: Not Reviewed Attestations 2 Medical Necessity Statement*: Patient will need to stay to be monitored for NSTEMI status post PCI and stenting Time Spent in Patient Care: Greater than 35 minutes (>than 50% of time spent in counselling and/or direct pt care on unit) . The high probability of a clinically significant, sudden or life threatening deterioration, as referenced in this documentation, required my full and direct attention, intervention and personal management. The critical care time shown is in addition to time spent performing any reported separately billable procedures and includes the following: [x] Data and vital sign review and interpretation [x ] Patient assessment, examination and intervention [x] Medication orders and management [x] Patient/Family updates as able [x] Care Coordination and Documentation. Critical Care Time: 65 Other Attestations: This documentation was created by [email or web address] director building software. Every effort was made to ensure accuracy of director building.? Any obvious errors or omissions should be clarified with the author of the document. Coding Level of Care Code Critical Care >/= 30 minutes Diagnoses Allergic reaction, subsequent encounter T78.40XD Encounter type: subsequent encounter Elevated troponin R79.89 Dyslipidemia E78.5 History of nonmelanoma skin cancer Z85.828 Unstable angina pectoris I20.0 Chest pain type: chest pain due to myocardial ischemia Ischemic chest pain type: unstable angina pectoris
--- NOTE | 2024-10-24 15:46 | PC.NURSE ---
Addendum entered by Padmini Brothers RN 10/24/24 15:47: [id number] Original Note: TR Band removed [id number]
[2024-10-25] VITALS (21 sets, daily range): BP systolic 107–146; BP diastolic 45–94; PULSE 46–70; RESP 10–23; TEMP 36.4–36.7; O2SAT 91–99
--- NOTE | 2024-10-25 00:17 | PC.NURSE ---
Patient care handed off to MAX Marcum due to incoming admissions.
[2024-10-25 03:32] LABS: Hematocrit 36.0 % (36-47); Hemoglobin 12.20 g/dL (11.27-16.99); Mean Corpuscular HGB Conc 33.9 g/dL (30-55); Mean Corpuscular Hemoglobin 31.8 pg (27-33); Mean Corpuscular Volume 93.8 fl (85-98); Nucleated Red Blood Cells % 0 %; Platelet Count 239 10^3/cmm (157-399); Red Blood Count 3.84 10^6/uL (3.85-5.65); White Blood Count 14.17 10^3/uL (3.29-11.43)
[2024-10-25 03:55] LABS: Alanine Aminotransferase 12 U/L (0-33); Albumin Level 3.4 g/dL (3.5-5.2); Alkaline Phosphatase 58 U/L (35-105); Anion Gap 15.8 (5-19); Aspartate Amino Transferase 18 U/L (0-32); Blood Urea Nitrogen 15 mg/dL (8-23); Calcium 8.2 mg/dL (8.5-10.5); Carbon Dioxide 21 mmol/L (22-29); Chloride 103 mmol/L (98-107); Creatinine Clr Calc Pharmacy 59.8347; Globulin 2.2 g/dL (1.3-4.6); Glucose 162 mg/dL (65-115); Osmolality Calculated 286 mOsm/kg (285-295); Potassium 3.8 mmol/L (3.5-5.1); Sodium 136 mmol/L (136-145); Total Protein 5.6 g/dL (6.6-8.7)
[2024-10-25] MEDS: methylPREDNISolone sod succ 40 mg/mL INJ IVP (08:09)
[2024-10-25] MEDS: diphenhydrAMINE 50 mg/mL SDV 1mL 25 MG IVP (09:37)
--- NOTE | 2024-10-25 11:34 | P.PN_ITS ---
Subjective 2 Subjective: Patient seen today by Dr. Mckenna and I. S/P stent to the LAD and ostial ramus stent. She is doing well without complaints. Cath site looks good. She states she is allergic to aspirin with anyphylactic alltegy. Vitals/I&O/Wt Last Vital Signs Temp 98.1 F 10/25/24 08:00 Pulse 70 10/25/24 09:00 Resp 22 H 10/25/24 09:00 BP 136/69 10/25/24 09:00 Pulse Ox 95 10/25/24 09:00 O2 Del Method Room Air 10/25/24 09:00 10/24/24 10/25/24 10/25/24 22:59 06:59 14:59 Intake Total 240 / 5693.475 6852.333 / 3294.533 300 / 300 Balance 240 / 0489.739 2003.333 / 3294.533 300 / 300 Weight last 48 hrs Weight 147 lb 11.355 oz Weight 151 lb 0.266 oz Physical Exam 2 Narrative: General: No apparent distress HENMT: normoceophalic Respiratory: Normal respiratory effort, clear to auscultation bilaterally throughout all lung rios, no use of accessory muscles Cardio: No JVD, regular rate, regular rhythm, S1 S2 normal, no murmurs, peripheral pulses 2+ radial palpated bilaterally Extremities: Full ROM, normal, normal capillary refill, no cyanosis or edema Neuro: Alert and oriented x4, no focal motor deficits Psych: Affect normal, denies suicidal ideation, mental status grossly normal Skin: Right radial cath site clean, dry, intact w/o hematoma Data 10/25/24 02:59 10/25/24 02:59 A&P Assessment and plan 1. Unstable angina pectoris: 2. Left ventricular systolic dysfunction (LVSD): 3. Elevated troponin: 4. Allergic reaction, subsequent encounter: 5. Acute hypokalemia: 6. Dyslipidemia: Plan: Patient doing well today s/p PCI to the proximal lad and ostial ramus. Due to her allergy to aspirin, it is recommended to start Pletal 50 mg BID with Brilinta 90 BID. She will be loaded with 180 mg of Brilinta today. Dual therapy recommended due to critical ostial lesions that were stented. Pletal has severe interaction with patient's Prozac. It was disussed with the patient risk and benefits of proceding with dual therapy and possibly switching her to a different antidepressant with less likelyhood of bleeding. At this time, she accepts the risks of bleeding and agrees to switch to citalopram. Due to long half life of Prozac, bradycardia, and QTc being on the higher side, she will wait 2 days to start the celexa and f/u with PCP for further dosage management. After 1 month, plan is for Brilinta only. Protonix will be given 40 mg daily for GI prophylaxis. Can go home from our perspective. Recommendations are to continue Brilinta, Pletal, celexa, statin, metoprolol and f/u in the clinic in 1 week. Monitor for and report abnormal bleeding. PDMP PDMP Reviewed: Not Reviewed Attestations 2 Medical Necessity Statement*: Deferred to primary. Coding Level of Care Code Acute Code for g Fwd Diagnoses Unstable angina pectoris I20.0 Chest pain type: chest pain due to myocardial ischemia Ischemic chest pain type: unstable angina pectoris Left ventricular systolic dysfunction (LVSD) I51.89 Elevated troponin R79.89 Allergic reaction, subsequent encounter T78.40XD Encounter type: subsequent encounter Acute hypokalemia E87.6 Dyslipidemia E78.5
--- NOTE | 2024-10-25 14:45 | PC.NURSE ---
Discharged home via private vehicle. Medications and instructions given to patient.
--- NOTE | 2024-10-25 15:54 | PM.DCS ---
Discharge Providers Date of Admission: 10/23/24 02:00 Date of Discharge: October 25, 2024 Attending Provider at Admission: Melo Vieyra MD Attending Provider at Discharge: Aung Meng MD Primary Care Provider: Shad Allen MD Diagnoses at Discharge Discharge Diagnosis 1. Unstable angina pectoris: 2. Left ventricular systolic dysfunction (LVSD): 3. Elevated troponin: 4. Allergic reaction, subsequent encounter: 5. Acute hypokalemia: 6. Dyslipidemia: Reason for Visit Reason for Visit: allergic rxn Brief History: Darlin Riley is a 79 year old female with a past medical history of hypertension, who presents to [facility] due to chest pain. The patient was working 3 days ago in her yard when she developed allergic-like reaction with hives and redness and erythema on her arms chest and back. He had previous history of anaphylaxis with aspirin. Questionable poison frida exposure however not very correlating to the picture of poison frida as per the patient. She went to urgent care and received prednisone which partially relieved her symptoms of allergy. She never encountered any facial swelling difficulty in breathing or any symptoms of angioedema. After prednisone it improved however before coming to ER overnight she had substernal chest pain that was radiating to her back without any shortness of breath lightheadedness dizziness. EMS was called and considering she was having at that time her rash and chest pain, an allergic reaction was considered as a high likelihood of her symptoms and received 0.5 mg of IM epinephrine. He had tachycardia on the way from ambulance to ER which resolved. Hospital Course Hospital Course During her course of illness, The patient has significant rise in troponins and leukocytosis that was related to stress underlying allergic reaction and ACS/NSTEMI. EKG showed diffuse T wave inversions in the anterolateral and high lateral leads but no ST segment elevation. She was having bradycardia in the range of 50s without any symptoms. Cardiology reviewed the patient and considering is a case of unstable angina pectoris she was further managed. She underwent echo which showed mild to moderate hypokinesia of the mid and apical septum, anteroseptum, inferolateral and inferior wall segments with ejection fraction of 46%. She underwent PCI and received 2 stents to proximal LAD and near the ostium/ramus. The patient is allergic to aspirin therefore the dual therapy was not given to her post stenting instead she was started over the Brilinta and cilostazol for 1 month and then to continue Brilinta to be followed with the cardiology as outpatient. She was switched from Prozac to escitalopram due to interaction with Brilinta. Her hospital course was uncomplicated. And the patient was managed with further addressing her concerns and questions without any language barrier. The patient felt glad about her condition being managed in the hospital since she was missing her that she is taking care of of at at home and has stage IV cancer. She was also discharged with EpiPen and prednisone with tapering dose and antihistamine as needed in the night for allergy symptoms. Further care was also elaborated for her in terms of avoiding excessive use and heavy lifting from the right arm since she had PCI through the right radial access. In terms of any allergic reaction or bleeding episodes to come to ER and the patient understands the plan of care and agreed with it without any language barrier Physical Exam Const: OTHER: General: Alert oriented x3, patient seen lying comfortably on the bed, having a bandage on the right arm that was used for PCI approach (right radial access) HEENT: Normocephalic, atraumatic, EOMI, breathing without any distress on room air with normal oxygen sats Cardio: Regular rate rhythm, normal S1-S2, no murmurs rubs gallops, JVD normal Respiratory: Good bilateral air entry, no wheezes no rhonchi appreciated GI: Abdomen soft, nontender, nondistended, normoactive bowel sounds present all 4 quadrants, Neuro: Cranial nerves II to XII intact, strength 5/5, sensation 5/5, no gross neurological deficit Behavior: Appropriate and cooperative Extremities: Pulses 2+, no edema, no cyanosis Skin: Visible skin intact, bilateral rashes on the arms Discharge Data Studies Completed and Pending Completed Studies During Hospitalization Category Date Time Status CV. 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 Routine Exams 10/24/24 06:27 Taken Sestamibi Stress Test Request Routine Exams 10/24/24 06:00 Stop Req Laboratory Results WBC 14.17 10^3/uL (3.29-11.43) H 10/25/24 02:59 RBC 3.84 10^6/uL (3.85-5.65) L 10/25/24 02:59 Hgb 12.20 g/dL (11.27-16.99) 10/25/24 02:59 Hct 36.0 % (36-47) 10/25/24 02:59 MCV 93.8 fl (85-98) 10/25/24 02:59 MCH 31.8 pg (27-33) 10/25/24 02:59 MCHC 33.9 g/dL (30-55) 10/25/24 02:59 RDW 12.2 % (12.1-15.1) 10/25/24 02:59 Plt Count 239 10^3/cmm (157-399) 10/25/24 02:59 MPV 11.0 fL (7.4-10.4) H 10/25/24 02:59 Neut % (Auto) 87.8 % 10/25/24 02:59 Lymph % (Auto) 8.0 % 10/25/24 02:59 [place] % (Auto) 3.3 % 10/25/24 02:59 Eos % (Auto) 0.0 % 10/25/24 02:59 Baso % (Auto) 0.1 % 10/25/24 02:59 Neut # (Auto) 12.44 10^3/uL (1.8-7.7) H 10/25/24 02:59 Lymph # (Auto) 1.1 10^3/uL (0.8-4.8) 10/25/24 02:59 [place] # (Auto) 0.5 10^3/uL (0.2-0.9) 10/25/24 02:59 Eos # (Auto) 0.0 10^3/uL (0.0-0.8) 10/25/24 02:59 Baso # (Auto) 0.0 10^3/uL (0.0-0.1) 10/25/24 02:59 Nucleated RBC % (auto) 0 % 10/25/24 02:59 Nucleated RBCs # 0.0 /100WBC 10/25/24 02:59 APTT Cancelled 10/24/24 11:20 Sodium 136 mmol/L (136-145) 10/25/24 02:59 Potassium 3.8 mmol/L (3.5-5.1) 10/25/24 02:59 Chloride 103 mmol/L (98-107) 10/25/24 02:59 Carbon Dioxide 21 mmol/L (22-29) L 10/25/24 02:59 Anion Gap 15.8 (5-19) 10/25/24 02:59 BUN 15 mg/dL (8-23) 10/25/24 02:59 Creatinine 0.6 mg/dL (0.5-0.9) 10/25/24 02:59 GFR Calculation Not Reportable 10/25/24 02:59 Glucose 162 mg/dL (65-115) H 10/25/24 02:59 Estimat Average Glucose 114 10/23/24 05:15 Hemoglobin A1c 5.6 % (4.0-6.0) 10/23/24 05:15 Calculated Osmolality 286 mOsm/kg (285-295) 10/25/24 02:59 Calcium 8.2 mg/dL (8.5-10.5) L 10/25/24 02:59 Total Bilirubin 0.2 mg/dL (0.15-1.2) 10/25/24 02:59 AST 18 U/L (0-32) 10/25/24 02:59 ALT 12 U/L (0-33) 10/25/24 02:59 Alkaline Phosphatase 58 U/L (35-105) 10/25/24 02:59 Troponin T 5th Gen ng/L 373 ng/L (0-10) H* 10/24/24 04:34 Troponin T Baseline 51 ng/L (0-10) H 10/22/24 23:15 Troponin T 120 Minute 375.1 ng/L (0-10) H 10/23/24 01:00 Delta Troponin T 324.1 ABS# (0-10) H* 10/23/24 01:00 Troponin T Hi Sens 6Hr 620.9 ng/L (0-10) H 10/23/24 05:15 Troponin T Hi Sens 6Hr Delta 569.9 ng/L (0-12) H* 10/23/24 05:15 NT-Pro-B Natriuret Pep 151 pg/mL (0-450) 10/22/24 23:15 Total Protein 5.6 g/dL (6.6-8.7) L 10/25/24 02:59 Albumin 3.4 g/dL (3.5-5.2) L 10/25/24 02:59 Globulin 2.2 g/dL (1.3-4.6) 10/25/24 02:59 Triglycerides 70 mg/dL (0-150) 10/23/24 05:15 Cholesterol 290 mg/dL (0-200) H 10/23/24 05:15 LDL Cholesterol, Calc 198 mg/dL (50-129) H 10/23/24 05:15 HDL Cholesterol 78 mg/dL (60-100) 10/23/24 05:15 LDL/HDL Ratio 2.54 RATIO (0.00-3.22) 10/23/24 05:15 Cholesterol/HDL Ratio 3.72 mg/dL (0.0-4.40) 10/23/24 05:15 TSH 0.30 uIU/mL (0.27-4.20) 10/23/24 05:15 Urine Color Yellow (Yellow) 10/23/24 07:50 Urine Appearance Clear (CLEAR) 10/23/24 07:50 Urine pH 7.0 (5-7) 10/23/24 07:50 Ur Specific [place] 1.019 (1.005-1.030) 10/23/24 07:50 Urine Protein 1+ (Negative) A 10/23/24 07:50 Urine Glucose (UA) 1+ (Normal) H 10/23/24 07:50 Urine Ketones Trace (Negative) 10/23/24 07:50 Urine Blood Negative (Negative) 10/23/24 07:50 Urine Nitrate Negative (Negative) 10/23/24 07:50 Urine Bilirubin Negative (Negative) 10/23/24 07:50 Urine Urobilinogen 1.0 mg/dL (Negative) 10/23/24 07:50 Ur Leukocyte Esterase 1+ (Negative) A 10/23/24 07:50 Urine RBC 0-2 /hpf (0-2) 10/23/24 07:50 Urine WBC 6-10 /hpf (0-5) 10/23/24 07:50 Ur Squamous Epith Cells 0-5 /hpf (0-5) 10/23/24 07:50 Amorphous Sediment Not Reportable 10/23/24 07:50 Urine Bacteria None seen /hpf (NONE) 10/23/24 07:50 Hyaline Casts 2.05 /lpf 10/23/24 07:50 Vitals Last Vital Signs Temp 97.7 F 10/25/24 14:32 Pulse 57 L 10/25/24 14:32 Resp 20 H 10/25/24 14:32 BP 126/68 10/25/24 14:32 Pulse Ox 96 10/25/24 14:32 O2 Del Method Room Air 10/25/24 10:00 Discharge Plan Discharge Patient Disposition: Home Condition: Stable Prescriptions: New atorvastatin 40 mg Tablet 40 mg PO BEDTIME 300 Days Qty: 300 0RF nitroglycerin 0.4 mg Tablet, Sublingual 0.4 mg sublingual Q5M PRN (Reason: Chest Pain) 300 Days Qty: 300 0RF metoprolol tartrate 25 mg Tablet 12.5 mg PO BID 300 Days Qty: 300 0RF ticagrelor [Brilinta] 90 mg tablet 90 mg PO BID Qty: 300 0RF prednisone 50 mg tablet 50 mg PO DAILY 4 Days Qty: 4 0RF Rx Instructions: to have steroid [place]. 30mg prednisone for 2 days 20mg prednsione for next 2 days 10mg prednisone for next 2 days 5mg prednisone for next 2 days and stop citalopram [Celexa] 10 mg tablet 10 mg PO DAILY Qty: 30 0RF cilostazol 100 mg Tablet 50 mg PO BID Qty: 30 0RF epinephrine [EpiPen] 0.3 mg/0.3 mL auto-injector 0.3 mg IM Q10M PRN (Reason: anaphylaxis) Qty: 5 0RF Rx Instructions: for 2 doses diphenhydramine HCl 50 mg capsule 50 mg PO Q6H PRN (Reason: allergic reaction) Qty: 100 0RF Continued lisinopril 40 mg tablet 40 mg PO DAILY hydrochlorothiazide 25 mg tablet 25 mg PO DAILY cholecalciferol (vitamin D3) 1,250 mcg (50,000 unit) capsule 50,000 mcg PO Q7D famotidine [Pepcid] 40 mg tablet 40 mg PO BID Qty: 10 0RF tizanidine 4 mg tablet 4 mg PO Q6H PRN (Reason: muscle spasms) felodipine 5 mg tablet extended release 24 hr 5 mg PO DAILY Discontinued fluoxetine 10 mg capsule 10 mg PO DAILY hydralazine 25 mg tablet 25 mg PO DAILY rimantadine [Flumadine] 100 mg tablet 100 mg PO DAILY Nuclear Security Officer OK for DC: Cardiology Discharge Order = DC NOW: Discharge Order (Routine); Ordered 10/25/24 Ordered By: Aung Meng Referrals: Memo Mckenna MD [Physician, Cardiology] - 11/01/24 3:30 pm Shad Allen MD [Primary Care Provider, Family Practice] - 4-7 days Referral Note: We have notified your physician's clinic of the need for a follow-up appointment to be scheduled. If you have not heard from them within the next 2 business days, please call them directly. please call this clinic tomorrow ! to get appointment for 4-7 days will need to call tomorrow.also lab for post angiogram (BMP) Discharge Diet: Advance as tolerated, Usual diet and Cardiac Discharge Activity: Resume usual activity, Increase activity as tolerated and Limit activity as instructed Patient Instructions: Nitroglycerin (By mouth), Prednisone (By mouth) (Prednisone Intensol, Prednicot, Deltasone, Dimitri), Diphenhydramine (By mouth), Atorvastatin (By mouth), Citalopram (By mouth) (Celexa), Cilostazol (By mouth) (Pletal), Ticagrelor (By mouth) (Brilinta), Heart Attack (DC), Chest Pain (DC), Coronary Angioplasty (DC), Coronary Intravascular Stent Placement (DC), Blood Thinners (DC), Chest Pain Stoplight, Opioid Safety, Post Angiogram Home Care Instructions, Post Heart Attack Stoplight, Patient Portal & Bhanu Instructions Activity Restrictions/Additional Instructions: Patient informed to avoid lifting heavy or more than 10 pounds from the right arm since she underwent PCI with cath from the right radial access. Patient informed in case of any allergic reaction such as hives or erythema or any bleeding episodes please come to the ER. To follow-up cardiology and primary care physician as outpatient The patient medications has been reconciled, cilostazol and Brilinta to be added to be taken for 1 month and then to continue only Brilinta for a year. Patient medication fluoxetine Prozac was held due to reaction with the blood thinners and to start on citalopram patient has been about the plan of care and agree with it without any language barrier Discharge Attestations Time Spent in Discharge Care*: critical care time Critical Care Time (min): 60 Specific Discharge Activities: educating patient, educating and/or supporting family/caregiver, discussing with pcp/other providers, discussing with family independence case manager/social workers/dc planners, documenting/other paperwork and evaluating patient/reviewing data Status at Discharge: Cognitive status at discharge: cognitively intact, Behavioral status at discharge: cooperative, Functional status at discharge: independent ambulation, Overall status at discharge: patient is back to baseline Quality Metrics Clinical Quality Measures [ Acute Myocardial Infaction { Clinical Trial Participant: No; Contraindication to aspirin: Adverse reaction to drug; Contraindication to statin: None; Statin prescribed;}] Coding Level of Care Code Critical Care >/= 30 minutes Diagnoses Unstable angina pectoris I20.0 Chest pain type: chest pain due to myocardial ischemia Ischemic chest pain type: unstable angina pectoris Left ventricular systolic dysfunction (LVSD) I51.89 Elevated troponin R79.89 Allergic reaction, subsequent encounter T78.40XD Encounter type: subsequent encounter Acute hypokalemia E87.6 Dyslipidemia E78.5 Time Spent (min) 60
== END 2024-10-25 14:45 | disposition home or self-care (01) | DRG 321 ==
LOC: ER 10-23 01:10 → ER IP 10-23 01:38 → ICU 10-23 03:20
PROVIDERS: Internal Medicine Cardiovascular Disease; Admitting Provider Family Medicine; Emergency Provider Emergency Medicine; PCP Family Medicine; Visit Provider Student in an Organized Health Care Education/Training Program
PROC: 027135Z Dilation of Coronary Artery, Two Arteries with Two Drug-eluting Intraluminal Devices, Percutaneous Approach (ICD-10-PCS; principal; 2024-10-24 07:00)
PROC: 5A2204Z Restoration of Cardiac Rhythm, Single (ICD-10-PCS; 2024-10-24 07:00)
DX: I21.4 Non-ST elevation (NSTEMI) myocardial infarction (principal); I49.01 Ventricular fibrillation; E87.6 Hypokalemia; E78.5 Hyperlipidemia, unspecified; I10 Essential (primary) hypertension; R00.0 Tachycardia, unspecified; T78.40XD Allergy, unspecified, subsequent encounter; X58.XXXD Exposure to other specified factors, subsequent encounter; I51.89 Other ill-defined heart diseases; Z79.02 Long term (current) use of antithrombotics/antiplatelets; Z85.828 Personal history of other malignant neoplasm of skin; Z88.6 Allergy status to analgesic agent; Z88.0 Allergy status to penicillin
CPT/HCPCS: 36415; 80048; 80053; 80061; 81001; 83036; 83880; 84443; 84484; 85025; 85347; 85730; 86003; 86008; 93005; 93306; 93458; 93571; 94664; 96365; 96366; 96367; 96374; 96375; 96376; 99152; 99153; 99285; C1725; C1769; C1874; C1887; C1894; C9600; C9601; G0378; J0282; J1200; J1644; J2250; J2919; J3010; J3480; J3490; J7030; J7040; J7512; J9999; Q0163; Q9967

== ENCOUNTER 2024-11-01 15:15 | Outpatient (CLI) | payer MEDICARE, OTHER, SELFPAY | END 2024-11-01 15:16 | disposition home or self-care (01) | LOC: RAD 11-03 10:26 | PROVIDERS: PCP Family Medicine; Visit Provider Internal Medicine Cardiovascular Disease | DX: I25.10 Atherosclerotic heart disease of native coronary artery without angina pectoris (principal); E78.5 Hyperlipidemia, unspecified; I10 Essential (primary) hypertension; Z95.5 Presence of coronary angioplasty implant and graft | CPT/HCPCS: 99213 ==

== ENCOUNTER 2024-11-09 13:52 | Outpatient (CLI) | payer MEDICARE, OTHER, SELFPAY ==
--- NOTE | 2024-11-09 14:01 | USCV_ITS ---
Darlin Riley Age: 79 Gender: F : 1945 Exam Date: 11/09/2024 14:21 Ordering Phys: Shad Allen MD Technologist: Exam Location: [facility] [place] Indication: stenosis Risk Factors: Previous Vascular Surgery: Right Brachial BP: / Left Brachial BP: / Right Left Velocity (cm/s) Spectral Plaque Velocity (cm/s) Spectral Plaque Syst/Diast Broadening Syst/Diast Broadening 82.20/ 13.30 Prox CCA 93.00 / 18.30 91.50/ 13.70 Mid CCA 90.80 / 16.80 87.60/ 16.90 Distal CCA 86.30 / 18.00 78.20/ 11.40 Prox ICA 68.40 / 12.80 59.50/ 14.80 Mid ICA 72.40 / 20.90 65.50/ 21.10 Distal ICA 62.50 / 16.00 87.70 ECA 80.50 0.90 ICA/CCA 0.80 Antegrade Vertebral Antegrade 43.30/ 11.40 cm/s 56.30/ 12.00 cm/s Tri Subclavian Tri 62.50 147.4 0 FINDINGS Comparison: none available. No significant elevation of systolic or diastolic velocities. Waveforms are normal. Minimal bilateral plaque with no elevation of velocity. CONCLUSIONS Bilateral ICA stenosis less than 50%. Dr. Katlyn Rodriguez DO (Electronically Signed) Final Date: 09 November 2024 16:00 S
== END 2024-11-09 13:53 | disposition home or self-care (01) ==
LOC: RAD 13:55
PROVIDERS: PCP Family Medicine; Visit Provider Family Medicine
DX: I65.23 Occlusion and stenosis of bilateral carotid arteries (principal)
CPT/HCPCS: 93880